=== PATIENT | female | born 1985 | race Caucasian/White ===

== ENCOUNTER → 2016-10-26 | Outpatient (CLI) | payer OTHER, MEDICAID ==
[~2016-10-26] MED LIST: BREA1EAC5 MC; CLC500CT PO; CTLP20T PO; DCS100C PO; HYDR-3720 PO; HYDR1TAB75 PO; IBP800T PO; LEVO175T2 PO; OMEP20TA2 PO; ONDN4T PO; PREN1TAB39 PO; PRM25T PO
--- NOTE | 2016-10-26 16:35 | Diagnostic Imaging Report ---
PROCEDURE: US Thyroid. TECHNIQUE: Multiple real-time grayscale images were obtained of the thyroid in various projections. INDICATION: Follow-up thyroid nodule. FINDINGS: The right thyroid lobe is 6.3 x 3.3 x 2.5 cm. The left lobe is 5.1 x 1.9 x 2.2 cm. Thyroid parenchyma is heterogeneous and slightly hypervascular. There is a hyperechoic nodule measuring 1 x 0.6 x 0.9 cm. This is not significantly changed from 03/16/2015 exam. IMPRESSION: 1. Essentially stable 1 cm hyperechoic nodule in the inferior aspect of the left thyroid lobe, likely benign. 2. Background stable heterogeneous gland could be sequela of thyroiditis or multinodular goiter without discrete nodules. Dictated by: Dictated on workstation # [id number]
== END ==
LOC: RAD 15:33
PROVIDERS: ATTEND Otolaryngology Otolaryngology/Facial Plastic Surgery
DX: E04.1 Nontoxic single thyroid nodule (principal)
CPT/HCPCS: 76536

== ENCOUNTER 2016-11-02 17:54 | Emergency (ER) | payer OTHER ==
[~2016-11-02] VITALS: Ht 172.7 cm; Wt 90.7 kg
--- OUTSIDE RECORDS SUMMARY | 2016-11-02 18:00 | XMS REPORT | Continuity of Care Document ---
Author Author [facility] Organization [facility] Address Unknown Phone Unavailable Allergies Active Description Code Type Severity Reaction Onset Reported/Identified Relationship to Patient Clinical Status Yes latex [id number] Drug Allergy Unknown N/A 07/22/2013 Medications Problems Date Dx Coded Attending Type Code Diagnosis Diagnosed By 10/08/2010 Ot 625.9 10/08/2010 Ot 646.83 12/21/2010 Ot 659.71 ABN DEL FET HT RT/RHYTHM,W OR W/O MENTIO 12/21/2010 Ot 669.81 COMP LAB/DELIV NEC-DELIV 12/21/2010 Ot V06.1 [id number], COMBINED [ 12/21/2010 Ot V27.0 DELIVER-SINGLE LIVEBORN 05/29/2012 Ot 276.51 DEHYDRATION 05/29/2012 Ot 787.03 VOMITING ALONE 05/29/2012 Ot 787.91 DIARRHEA 07/24/2013 AUDRA AGUDELO MD Ot 648.91 OTH CURR COND-DELIVERED 07/24/2013 AUDRA AGUDELO MD Ot V02.51 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 B STREPT 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/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 07/24/2013 AUDRA AGUDELO MD Ot V06.1 [id number], COMBINED [ 07/24/2013 AUDRA AGUDELO MD Ot V06.4 [id number] 07/24/2013 AUDRA AGUDELO MD Ot V27.0 DELIVER-SINGLE LIVEBORN 03/10/2014 Ot 241.1 03/10/2014 Ot 244.9 03/10/2014 Ot 462 03/10/2014 Ot 780.60 03/10/2014 Ot 599.70 03/10/2014 Ot 789.00 03/10/2014 AUDRA AGUDELO MD Ot 240.9 03/10/2014 [place], IJEOMA Coates Ot 241.1 03/28/2014 IJEOMA OSBORNE MD Ot 241.0 04/12/2014 Ot 241.1 04/12/2014 Ot 244.9 04/12/2014 Ot 462 04/12/2014 Ot 780.60 10/03/2014 Ot 241.1 10/03/2014 Ot 244.9 10/03/2014 Ot 462 10/03/2014 Ot 780.60 03/16/2015 Ot 241.1 03/16/2015 Ot 244.9 03/16/2015 Ot 462 03/16/2015 Ot 780.60 03/16/2015 Ot 599.70 03/16/2015 Ot 789.00 03/16/2015 [place], AUDRA Rand Ot 240.9 03/16/2015 [place], IJEOMA Coates Ot 241.1 03/16/2015 [place], IJEOMA Coates Ot 241.0 04/10/2015 Ot 241.1 04/10/2015 Ot 244.9 04/10/2015 Ot 462 04/10/2015 Ot 780.60 05/05/2015 Ot 241.1 05/05/2015 Ot 244.9 05/05/2015 Ot 462 05/05/2015 Ot 780.60 05/30/2016 Ot 241.1 NONTOX MULTINODUL GOITER 05/30/2016 Ot 244.9 HYPOTHYROIDISM NOS 05/30/2016 Ot 462 ACUTE PHARYNGITIS 05/30/2016 Ot 780.60 FEVER, UNSPECIFIED 05/30/2016 Ot 241.1 NONTOX MULTINODUL GOITER 05/30/2016 Ot 244.9 HYPOTHYROIDISM NOS 05/30/2016 Ot 462 ACUTE PHARYNGITIS 05/30/2016 Ot 780.60 FEVER, UNSPECIFIED 10/21/2016 Ot 462 ACUTE PHARYNGITIS 10/21/2016 Ot 780.60 FEVER, UNSPECIFIED 10/21/2016 Ot 599.70 HEMATURIA, UNSPECIFIED 10/21/2016 Ot 789.00 ABDOMINAL PAIN, UNSPECIFIED SITE 10/21/2016 [place], AUDRA Rand Ot 240.9 GOITER NOS 10/21/2016 [place], IJEOMA Coates Ot 241.1 NONTOX MULTINODUL GOITER 10/21/2016 [place], IJEOMA Coates Ot 241.0 NONTOX UNINODULAR GOITER 10/21/2016 [place], IJEOMA Coates Ot E04.9 NONTOXIC GOITER, UNSPECIFIED 10/21/2016 Ot 462 ACUTE PHARYNGITIS 10/21/2016 Ot 780.60 FEVER, UNSPECIFIED 10/21/2016 Ot 599.70 HEMATURIA, UNSPECIFIED 10/21/2016 Ot 789.00 ABDOMINAL PAIN, UNSPECIFIED SITE 10/21/2016 AUDRA AGUDELO MD Ot 240.9 GOITER NOS 10/21/2016 IJEOMA OSBORNE MD Ot 241.1 NONTOX MULTINODUL GOITER 10/21/2016 IJEOMA OSBORNE MD Ot 241.0 NONTOX UNINODULAR GOITER 10/21/2016 IJEOMA OSBORNE MD Ot E04.9 NONTOXIC GOITER, UNSPECIFIED Procedures Code Description Performed By Performed On 72.1 LOW FORCEPS W EPISIOTOMY 12/19/2010 73.6 EPISIOTOMY 2013 Results Encounters ACCT No. Visit Date/Time Discharge Status Pt. Type Provider Facility Loc./Unit Complaint [id number] 03/16/2015 13:49:00 2014 23:59:59 CLS Outpatient IJEOMA OSBORNE MD [facility] RAD GOITER [id number] 03/10/2014 08:36:00 2013 23:59:59 CLS Outpatient IJEOMA OSBORNE MD [facility] RAD THYROID NODULES [id number] 09/10/2013 15:44:00 2013 23:59:59 CLS Outpatient IJEOMA OSBORNE MD [facility] RAD GOITER [id number] 07/23/2013 07:15:00 2013 15:45:00 DIS Inpatient AUDRA AGUDELO MD [facility] WS EARLY LABOR [id number] 10/02/2012 10:37:00 2012 23:59:59 CLS Outpatient AUDRA AGUDELO MD [facility] RAD GOITER [id number] 10/26/2016 15:33:00 ACT Outpatient IJEOMA OSBORNE MD [facility] RAD LEFT INFERIOR THYROID NODULE [id number] 07/30/2012 14:41:00 Document Registration [id number] 05/29/2012 03:13:00 Document Registration [id number] 06/16/2011 09:51:00 Document Registration [id number] 01/20/2011 12:32:00 Document Registration [id number] 12/19/2010 06:41:00 Document Registration [id number] 10/08/2010 19:03:00 Document Registration
[2016-11-02 18:46] LABS: BILIRUBIN,URINE NEGATIVE (NEGATIVE); KETONES,URINE NEGATIVE (NEGATIVE); LEUKOCYTE ESTERASE ,URINE 1+ (NEGATIVE); NITRITE,URINE NEGATIVE (NEGATIVE); PH,URINE 6.5 (5-9); PROTEIN,URINE NEGATIVE (NEGATIVE); UROBILINOGEN,URINE NORMAL (NORMAL)
--- NOTE | 2016-11-02 18:50 | ED GU-Female ---
General Chief Complaint: -Female Stated Complaint: 12 W /VAGINAL BLEEDING History of Present Illness Time seen by provider: 18:35 Initial Comments Approximately 12 weeks gestation, at 1700 noted vaginal bleeding, she describes as a "gush" of blood. Bright red, spotting and blood with urination. Denies abdominal cramping, pain, nausea vomiting or diarrhea. Using a pad at the present time with the scant amount of pink discharge. Was recently started on Macrobid for UTI, and Flagyl for BV Dr. Mercedes. She is continuing to have some yellow/green vaginal d/c. Synthroid was adjusted last week. Timing/Duration: just prior to arrival Radiation: none Activities at Onset: none Prior Genitourinary Problems: none Sexual [place] History: less than 2 months ago Associated Symptoms: denies symptoms Allergies and Home Medications Allergies Coded Allergies: latex (Unverified Allergy, Unknown, 07/22/13) Home Medications Breast Pump 1 Pkt Each, 1 EA MC UD, #1 Prescribed by: AUDRA LONG on 07/24/13 0746 Calcium Carbonate 500 Mg Tab.chew, 1,000 MG PO DAILY PRN for INDIGESTION, ( Reported) Docusate Sodium 100 Mg Capsule, 300 MG PO DAILY, (Reported) Docusate Sodium 100 Mg Capsule, 1 CAP PO DAILY PRN for CONSTIPATION, #60 Prescribed by: AUDRA LONG on 07/24/13 0746 Hydrocodone Bit/Acetaminophen 1 Each Tablet, 1-2 TAB PO Q3H PRN for PAIN, #60 Prescribed by: AUDRA LONG on 07/24/13 0746 Ibuprofen 800 Mg Tablet, 1 TAB PO Q6H PRN for PAIN, #60 Prescribed by: AUDRA LONG on 07/24/13 0746 Levothyroxine Sodium 175 Mcg Tablet, 1 EACH PO DAILY, (Reported) Omeprazole 20 Mg Tablet.dr, 20 MG PO DAILY, (Reported) Ondansetron Hcl 4 Mg Tab, 4 MG PO Q6H PRN for NAUSEA/VOMITING, (Reported) Vits W-Ca,Fe,Fa(<1MG) 1 Each Tablet, 1 EACH PO DAILY, (Reported) Constitutional: no symptoms reported, see HPI Respiratory: no symptoms reported, see HPI Gastrointestinal: no symptoms reported, see HPI Genitourinary: see HPI, hematuria Musculoskeletal: no symptoms reported, see HPI All Other Systemes Reviewed Negative Unless Noted: Yes Past Oghgpuw-Lealcr-Ungmyx Hx Patient Social History Recent Foreign Travel: No Contact w/Someone Who Travel: No Surgeries HX Surgeries: No Respiratory Hx Respiratory Disorders: No Cardiovascular Hx Cardiac Disorders: No Neurological Hx Neurological Disorders: No Reproductive System Hx Reproductive Disorders: No Sexually Transmitted Disease: No HIV/AIDS: No Genitourinary Hx Genitourinary Disorders: No Gastrointestinal Hx Gastrointestinal Disorders: No Musculoskeletal Hx Musculoskeletal Disorders: No Endocrine Hx Endocrine Disorders: Yes Endocrine Disorders: Hypothyroidsim HEENT HX ENT Disorders: No Cancer Hx Cancer: No Psychosocial Hx Psychiatric Problems: No Integumentary HX Skin/Integumentary Disorder: No Blood Transfusions Hx Blood Disorders: No Adverse Reaction to a Blood Tr: No Reviewed Nursing Assessment Reviewed/Agree w Nursing PMH: Yes Family Medical History Family Medial History: Family history: Diabetes mellitus pgf Family history: Hypertension 09 BROTHER Family history: Thyroid disorder 03 FATHER Physical Exam Vital Signs Vital Sign - Last 12Hours 11/02/16 18:30 Temp 98.1 Pulse 92 Resp 18 B/P (MAP) 137/91 Pulse Ox 95 Capillary Refill : General Appearance: WD/WN, no apparent distress Neck: non-tender, full range of motion, normal inspection Cardiovascular: normal peripheral pulses, regular rate, rhythm, no JVD, no murmur Respiratory: chest non-tender, lungs clear, normal breath sounds Gastrointestinal: normal bowel sounds, non tender, soft, no organomegaly, distended, No guarding, No rebound, No tenderness Extremities: normal range of motion, non-tender, normal inspection Neurologic/Psychiatric: no motor/sensory deficits, alert, normal mood/affect, oriented x 3 Skin: normal color, warm/dry Lymphatic: no adenopathy Progress/Results/Core Measures Results/Orders Lab Results Laboratory Tests Test 11/02/16 18:40 11/02/16 18:41 11/02/16 19:12 Range/Units Urine Test POSITIVE NEGATIVE Urine Color YELLOW Urine Clarity CLEAR Urine pH 6.5 5-9 Urine Specific [place] 1.010 L 1.016-1.022 Urine Protein NEGATIVE NEGATIVE Urine Glucose (UA) NEGATIVE NEGATIVE Urine Ketones NEGATIVE NEGATIVE Urine Nitrite NEGATIVE NEGATIVE Urine Bilirubin NEGATIVE NEGATIVE Urine Urobilinogen NORMAL NORMAL MG/DL Urine Leukocyte Esterase 1+ H NEGATIVE Urine RBC (Auto) 4+ H NEGATIVE Urine RBC 2-5 H /HPF Urine WBC RARE /HPF Urine Squamous Epithelial Cells 2-5 /HPF Urine Crystals NONE /LPF Urine Bacteria NEGATIVE /HPF Urine Casts NONE /LPF Urine Mucus NEGATIVE /LPF Urine Culture Indicated NO White Blood Count 13.6 H 4.3-11.0 10^3/uL Red Blood Count 4.25 L 4.35-5.85 10^6/uL Hemoglobin 13.1 11.5-16.0 G/DL Hematocrit 38 35-52 % Mean Corpuscular Volume 90 80-99 FL Mean Corpuscular Hemoglobin 31 25-34 PG Mean Corpuscular Hemoglobin Concent 34 32-36 G/DL Red Cell Distribution Width 12.3 10.0-14.5 % Platelet Count 261 130-400 10^3/uL Mean Platelet Volume 8.7 7.4-10.4 FL Neutrophils (%) (Auto) 80 H 42-75 % Lymphocytes (%) (Auto) 11 L 12-44 % Monocytes (%) (Auto) 8 0-12 % Eosinophils (%) (Auto) 0 0-10 % Basophils (%) (Auto) 0 0-10 % Neutrophils # (Auto) 9.9 H 1.8-7.8 X 10^3 Lymphocytes # (Auto) 1.4 1.0-4.0 X 10^3 Monocytes # (Auto) 1.0 0.0-1.0 X 10^3 Eosinophils # (Auto) 0.0 0.0-0.3 10^3/uL Basophils # (Auto) 0.0 0.0-0.1 10^3/uL Prothrombin Time 11.9 L 12.2-14.7 SEC INR Comment 0.9 0.8-1.4 Activated Partial Thromboplast Time 24 24-35 SEC Sodium Level 136 135-145 MMOL/L Potassium Level 3.6 3.6-5.0 MMOL/L Chloride Level 107 98-107 MMOL/L Carbon Dioxide Level 19 L 21-32 MMOL/L Anion Gap 10 5-14 MMOL/L Blood Urea Nitrogen 9 7-18 MG/DL Creatinine 0.66 0.60-1.30 MG/DL Estimat Glomerular Filtration Rate > 60 BUN/Creatinine Ratio 14 Glucose Level 98 70-105 MG/DL Calcium Level 8.9 8.5-10.1 MG/DL Total Bilirubin 0.2 0.1-1.0 MG/DL Aspartate Amino Transf (AST/SGOT) 23 5-34 U/L Alanine Aminotransferase (ALT/SGPT) 23 0-55 U/L Alkaline Phosphatase 61 40-136 U/L Total Protein 7.0 6.4-8.2 GM/DL Albumin 3.9 3.2-4.5 GM/DL Thyroid Stimulating Hormone (TSH) 7.64 H 0.35-4.94 UIU/ML Human Chorionic Gonadotropin, Quant 180309 H <5 MIU/ML My Orders Orders - PIPO HOLLY Us Ob Single Fetus<14 [id number] (11/02/16 18:35) Cbc With Automated Diff (11/02/16 18:36) Comprehensive Metabolic Panel (11/02/16 18:36) Hcg,Qualitative Urine (11/02/16 18:36) Protime With Inr (11/02/16 18:36) Partial Thromboplastin Time (11/02/16 18:36) Ua Culture If Indicated (11/02/16 18:36) Thyroid Stimulating Hormone (11/02/16 18:44) Hcg,Quantitative (11/02/16 19:12) Vital Signs/I&O Vital Sign - Last 12Hours 11/02/16 11/02/16 18:30 19:55 Temp 98.1 Pulse 92 92 Resp 18 18 B/P (MAP) 137/91 Pulse Ox 95 95 Progress Note : Time: 18:35 Progress Note Initial evaluation completed, recommended labs UA, qualitative and quantitative hCG, CBC, CMP and TSH. Obstetric Ultrasound. 1899 ultrasound and assessment reviewed with Dr. Mercedes by phone, recommended evaluation with him at 0930 tomorrow in his office. 1914 discussed all lab results with the patient and findings of her ultrasound at this time would recommend rest, fluids and follow-up with Dr. Mercedes. Labs are all essentially normal with exception of elevated TSH 7.64. Quantitative hCG 118,609 Diagnostic Imaging Diagonstic Imaging: Ultrasound Comments NAME: JEANE MALIK MED REC#: [id number] PT STATUS: REG ER : 1985 PHYSICIAN: PIPO HOLLY ADMIT DATE: 11/02/16/ER Draft Date of Exam:11/02/16 US OB SINGLE FETUS<14 [id number] PROCEDURE: US OB single fetus <14 wks. TECHNIQUE: Multiple real-time grayscale images were obtained over the gravid uterus in various projections. INDICATION: Vaginal bleeding. COMPARISON: None. FINDINGS: Single intrauterine with a crown-rump length corresponding to a 12 week, 1 day gestation. heart rate is 165 bpm. There is a small possible subchorionic hemorrhage involving less than 20% of the gestational sac circumference. IMPRESSION: 1. Single live intrauterine with a crown-rump length corresponding to a 12 week, 1 day gestation. heart rate is 165 beats per minute. 2. Possible small ill-defined subchorionic hemorrhage involving less than 20% of the gestational sac circumference. Report was called to the ER physician at 7:33 p.m., by javad. Dictated on workstation # [id number] Dict: 11/02/161916 Trans: 11/02/161935 [id number] Interpreted by: PRINCE WAGNER MD Electronically signed by: Departure Impression Impression: Primary Impression: Vaginal bleeding before 22 weeks gestation Disposition: 01 HOME, SELF-CARE Condition: Stable Departure-Patient Inst. Decision time for Depature: 19:30 Referrals: KALEN TEJEDA MD (PCP/Family) Primary Care Physician Patient Instructions: Bleeding With (DC) Add. Discharge Instructions: Bedrest, increase water intake. Vaginal Rest, no intercourse. See Dr. Dc at 9:30 tomorrow. Return to emergency department for increased vaginal bleeding, fever greater than 100, fainting, abdominal pain, or new problems. All discharge instructions reviewed with patient and/or family. Voiced understanding. Copy Copies To 1: AUDRA MERCEDES MD, AMY ARNP Nov 02, 2016 18:50
[2016-11-02 18:56] LABS: WBC,URINE RARE /HPF
[2016-11-02 19:21] LABS: BASOPHILS % (AUTO) 0 % (0-10); EOSINOPHILS % (AUTO) 0 % (0-10); LYMPHOCYTES # (AUTO) 1.4 X 10^3 (1.0-4.0); LYMPHOCYTES % (AUTO) 11 % (12-44); MEAN CORPUSCULAR HGB CONC 34 G/DL (32-36); MEAN CORPUSCULAR VOLUME 90 FL (80-99); MEAN PLATELET VOLUME 8.7 FL (7.4-10.4); MONOCYTES % (AUTO) 8 % (0-12); NEUTROPHILS # (AUTO) 9.9 X 10^3 (1.8-7.8); NEUTROPHILS % (AUTO) 80 % (42-75); RED CELL DISTRIBUTION WIDTH 12.3 % (10.0-14.5)
[2016-11-02 19:23] LABS: MEAN CORPUSCULAR HEMOGLOBIN 31 PG (25-34); PLATELET COUNT 261 10^3/uL (130-400); RED BLOOD COUNT 4.25 10^6/uL (4.35-5.85); WHITE BLOOD COUNT 13.6 10^3/uL (4.3-11.0)
[2016-11-02 19:31] LABS: INR 0.9 (0.8-1.4); PROTHROMBIN TIME PATIENT 11.9 SEC (12.2-14.7)
--- NOTE | 2016-11-02 19:36 | Diagnostic Imaging Report ---
PROCEDURE: US OB single fetus <14 wks. TECHNIQUE: Multiple real-time grayscale images were obtained over the gravid uterus in various projections. INDICATION: Vaginal bleeding. COMPARISON: None. FINDINGS: Single intrauterine with a crown-rump length corresponding to a 12 week, 1 day gestation. heart rate is 165 bpm. There is a small possible subchorionic hemorrhage involving less than 20% of the gestational sac circumference. IMPRESSION: 1. Single live intrauterine with a crown-rump length corresponding to a 12 week, 1 day gestation. heart rate is 165 beats per minute. 2. Possible small ill-defined subchorionic hemorrhage involving less than 20% of the gestational sac circumference. Report was called to the ER physician at 7:33 p.m., by javad. Dictated by: Dictated on workstation # [id number]
[2016-11-02 19:50] LABS: ALANINE AMINOTRANSFERASE 23 U/L (0-55); ALBUMIN 3.9 GM/DL (3.2-4.5); ANION GAP 10 MMOL/L (5-14); ASPARTATE AMINO TRANSFERASE 23 U/L (5-34); BILIRUBIN,TOTAL 0.2 MG/DL (0.1-1.0); BLOOD UREA NITROGEN 9 MG/DL (7-18); BUN/CREATININE RATIO 14; CALCIUM 8.9 MG/DL (8.5-10.1); CARBON DIOXIDE 19 MMOL/L (21-32); CHLORIDE 107 MMOL/L (98-107); CREATININE SERUM 0.66 MG/DL (0.60-1.30); GFR ESTIMATED > 60; GLUCOSE 98 MG/DL (70-105); POTASSIUM 3.6 MMOL/L (3.6-5.0); SODIUM 136 MMOL/L (135-145)
[2016-11-02 19:55] VITALS: BP 137/91
[2016-11-02 20:52] LABS: THYROID STIMULATING HORMONE 7.64 UIU/ML (0.35-4.94)
== END 2016-11-02 19:55 | disposition home or self-care (01) ==
LOC: EDUNIT# 17:54 → ER 17:57
DX: O46.92 Antepartum hemorrhage, unspecified, second trimester (principal); O99.282 Endocrine, nutritional and metabolic diseases complicating pregnancy, second trimester; E03.9 Hypothyroidism, unspecified; Z3A.22 22 weeks gestation of pregnancy
CPT/HCPCS: 36415; 76801; 80053; 81000; 84443; 84702; 84703; 85025; 85610; 85730; 99282

== ENCOUNTER → 2017-01-02 | Outpatient (CLI) | payer OTHER, MEDICAID | LOC: CARD 11:34 | PROVIDERS: ATTEND Obstetrics & Gynecology | DX: R00.2 Palpitations (principal) | CPT/HCPCS: 93005 ==

== ENCOUNTER 2017-03-08 13:00 | Outpatient (RCR) | payer OTHER, MEDICAID ==
[2017-04-24] MEDS ORDERED: LEVO200T6 PO (06:00)
[2017-04-24] MEDS ORDERED: OMEP20CA12 PO (06:00)
[2017-04-24] MEDS ORDERED: CITA20TA12 PO (06:00)
[2017-04-24] MEDS ORDERED: OXYC-465 PO (10:08)
[2017-04-24] MEDS ORDERED: IBUP-1780 PO (10:08)
[2017-04-24] MEDS ORDERED: DOCU-143 PO (10:08)
== END 2017-06-06 | disposition home or self-care (01) ==
LOC: CARD 13:00
PROVIDERS: ATTEND Internal Medicine Interventional Cardiology
DX: R00.2 Palpitations (principal)
CPT/HCPCS: 93225; 93226

== ENCOUNTER → 2017-03-08 | Outpatient (CLI) | payer OTHER, MEDICAID | LOC: CARD 12:55 | PROVIDERS: ATTEND Internal Medicine Interventional Cardiology | DX: R00.2 Palpitations (principal) | CPT/HCPCS: 93306 ==

== ENCOUNTER 2017-04-24 05:17 | Inpatient (IN) | payer OTHER, MEDICAID ==
[~2017-04-24] VITALS: Ht 172.7 cm; Wt 90.7 kg
[2017-04-24] VITALS (35 sets, daily range): BP systolic 99–139; BP diastolic 53–96
[2017-04-24] MEDS ORDERED: LEVO200T6 PO (06:00)
[2017-04-24] MEDS ORDERED: OMEP20CA12 PO (06:00)
[2017-04-24] MEDS ORDERED: CITA20TA12 PO (06:00)
[2017-04-24] MEDS ORDERED: D5 LR IV SOLUTION 1,000 ML IV SCH (07:17)
[2017-04-24 07:26] LABS: BILIRUBIN,URINE NEGATIVE (NEGATIVE); CLARITY,URINE CLEAR; COLOR,URINE YELLOW; GLUCOSE, URINE (UA) NEGATIVE (NEGATIVE); KETONES,URINE NEGATIVE (NEGATIVE); LEUKOCYTE ESTERASE ,URINE NEGATIVE (NEGATIVE); NITRITE,URINE NEGATIVE (NEGATIVE); PH,URINE 8 (5-9); PROTEIN,URINE NEGATIVE (NEGATIVE); UROBILINOGEN,URINE NORMAL (NORMAL)
[2017-04-24] MEDS ORDERED: MINERAL OIL CONCENTRATE 99.9% 15 ML UDC TOP PRN (07:30)
[2017-04-24] MEDS ORDERED: CATHETER FLUSH 10 ML SYR IV PRN (07:30)
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
[2017-04-24 07:36] LABS: BACTERIA,URINE TRACE /HPF
[2017-04-24 07:37] LABS: AMORPHOUS SEDIMENT,UR MOD AMOR PHOSPHATE /LPF
[2017-04-24 07:53] LABS: BASOPHILS % (AUTO) 0 % (0-10); EOSINOPHILS % (AUTO) 0 % (0-10); HEMATOCRIT 33 % (35-52); HEMOGLOBIN 10.9 G/DL (11.5-16.0); LYMPHOCYTES # (AUTO) 2.1 X 10^3 (1.0-4.0); LYMPHOCYTES % (AUTO) 16 % (12-44); MEAN CORPUSCULAR HEMOGLOBIN 28 PG (25-34); MEAN CORPUSCULAR HGB CONC 33 G/DL (32-36); MEAN CORPUSCULAR VOLUME 84 FL (80-99); MEAN PLATELET VOLUME 9.9 FL (7.4-10.4); MONOCYTES % (AUTO) 7 % (0-12); NEUTROPHILS # (AUTO) 10.2 X 10^3 (1.8-7.8); NEUTROPHILS % (AUTO) 76 % (42-75); PLATELET COUNT 309 10^3/uL (130-400); RED BLOOD COUNT 3.97 10^6/uL (4.35-5.85); RED CELL DISTRIBUTION WIDTH 12.9 % (10.0-14.5); WHITE BLOOD COUNT 13.4 10^3/uL (4.3-11.0)
[2017-04-24] MEDS ORDERED: SUFENTA 0.6MCG/ML BUPIVA 0.125 100 ML ONE ×2 (08:07→10:48)
[2017-04-24] MEDS ORDERED: INFLUENZA TRIvalent 2017-2018 0.5 ML/45 MCG SYR IM ONE (08:15)
[2017-04-24 08:58] LABS: SMEAR SCAN COMMENT YES
[2017-04-24] MEDS ORDERED: OXYTOCIN/NORMAL SALINE 500 ML IV SCH ×3 (09:17→10:04)
--- NOTE | 2017-04-24 10:03 | History & Physical ---
History and Physical Date Seen by Provider: Apr 24, 2017 Time Seen by Provider: 10:00 this patient is a 31-year-old white female with a due date of May 15, 2014 putting her now at 37 weeks gestation. She presented in labor. She denied ruptured membranes or bleeding. She had a GBS culture after 35 weeks gestation that was negative. her has been complicated by an abnormal tetra test showing initially increased risk for an acute effect however her on recheck that returned as normal. Allergies are to latex and to Zithromax Medications are Synthroid Celexa vitamins and likely just Medical social and surgical and obstetric histories are per the antepartum record HEENT exam is normal Neck is supple no lymphadenopathy no thyromegaly Abdomen is gravid soft nontender nondistended Streaming show no clubbing cyanosis. There is no Homans sign. There is some pretibial pitting edema that is normal. Pelvic exam shows a cervix that is 2-2 and half centimeters dilated soft posterior the presenting part is high at -2 station. Amniotomy is performed with release of a small amount of clear fluid. monitor shows contractions every 3-4 minutes. There is a normal heart rate pattern. Laboratory Tests Test 04/24/17 05:35 04/24/17 07:40 Range/Units Urine Color YELLOW Urine Clarity CLEAR Urine pH 8 5-9 Urine Specific Bloomer 1.015 L 1.016-1.022 Urine Protein NEGATIVE NEGATIVE Urine Glucose (UA) NEGATIVE NEGATIVE Urine Ketones NEGATIVE NEGATIVE Urine Nitrite NEGATIVE NEGATIVE Urine Bilirubin NEGATIVE NEGATIVE Urine Urobilinogen NORMAL NORMAL MG/DL Urine Leukocyte Esterase NEGATIVE NEGATIVE Urine RBC (Auto) NEGATIVE NEGATIVE Urine RBC NONE /HPF Urine WBC NONE /HPF Urine Crystals PRESENT H /LPF Urine Amorphous Sediment MOD BAYRON PHOSPHATE H /LPF Urine Bacteria TRACE /HPF Urine Casts NONE /LPF Urine Mucus NEGATIVE /LPF Urine Culture Indicated NO White Blood Count 13.4 H 4.3-11.0 10^3/uL Red Blood Count 3.97 L 4.35-5.85 10^6/uL Hemoglobin 10.9 L 11.5-16.0 G/DL Hematocrit 33 L 35-52 % Mean Corpuscular Volume 84 80-99 FL Mean Corpuscular Hemoglobin 28 25-34 PG Mean Corpuscular Hemoglobin Concent 33 32-36 G/DL Red Cell Distribution Width 12.9 10.0-14.5 % Platelet Count 309 130-400 10^3/uL Mean Platelet Volume 9.9 7.4-10.4 FL Neutrophils (%) (Auto) 76 H 42-75 % Lymphocytes (%) (Auto) 16 12-44 % Monocytes (%) (Auto) 7 0-12 % Eosinophils (%) (Auto) 0 0-10 % Basophils (%) (Auto) 0 0-10 % Neutrophils # (Auto) 10.2 H 1.8-7.8 X 10^3 Lymphocytes # (Auto) 2.1 1.0-4.0 X 10^3 Monocytes # (Auto) 1.0 0.0-1.0 X 10^3 Eosinophils # (Auto) 0.0 0.0-0.3 10^3/uL Basophils # (Auto) 0.0 0.0-0.1 10^3/uL Smear Scan YES lab work is in the normal Assessment and plan term now 37 weeks' gestation in spontaneous labor. Plan is to allow epidural and augmented labor with amniotomy and Pitocin if needed expectation is for vaginal delivery Allergies and Home Medications Allergies Coded Allergies: amoxicillin (Verified Allergy, Unknown, 04/24/17) azithromycin (Verified Allergy, Unknown, 04/24/17) clavulanic acid (Verified Allergy, Unknown, 04/24/17) latex (Unverified Allergy, Unknown, 07/22/13) Home Medications Citalopram Hydrobromide 20 Mg Tablet, 20 MG PO DAILY, (Reported) Docusate Sodium 100 Mg Capsule, 300 MG PO DAILY, (Reported) Levothyroxine Sodium 200 Mcg Tablet, 200 MCG PO DAILY, (Reported) Omeprazole 20 Mg Capsule.dr, 20 MG PO BID, (Reported) Vits W-Ca,Fe,Fa(<1MG) 1 Each Tablet, 1 EACH PO DAILY, (Reported) Clinical Quality Measures DVT/VTE Risk/Contraindication: Risk Factor Score Per Nursin RFS Level Per Nursing on Admit: 1=Low/No VTE PPX AUDRA AGUDELO MD Apr 24, 2017 10:03 am
[2017-04-24] MEDS ORDERED: OXYC-465 PO (10:08)
[2017-04-24] MEDS ORDERED: IBUP-1780 PO (10:08)
[2017-04-24] MEDS ORDERED: DOCU-143 PO (10:08)
--- NOTE | 2017-04-24 10:10 | Discharge Instructions ---
Discharge Instructions Discharge Medications New, Converted or Re-Newed RX: RX on Chart Patient Instructions Patient Instructions: as directed Return to The Hospital For: as instructed Activity & Diet Discharge Diet: No Restrictions Orders-Post D/C & Referrals Follow Up Appt: Call to make follow up appt. for patient in 4 weeks. Activity Per routine post vaginal delivery instructions. Diet as tolerated Patient may shower or tub bathe as desired. AUDRA AGUDELO MD Apr 24, 2017 10:09 am
[2017-04-24] MEDS ORDERED: ONDANSETRON 4 MG/2 ML (SDV) Z0FRAN IVP PRN (10:15)
[2017-04-24] MEDS ORDERED: TETANUS,DIPTH,PERTUSS P/F (BOOSTRIX) 0.5 ML VIAL IM ONE (10:15)
[2017-04-24] MEDS ORDERED: BENZOCAINE/MENTHOL (DERMOPLAST) 56 ML CAN TP PRN (10:15)
[2017-04-24] MEDS ORDERED: oxyCODONE/APAP 10/325MG (PERCOCET 10) TABLET PO PRN (10:15)
[2017-04-24] MEDS ORDERED: LACTATED RINGERS 1,000 ML IV SCH (10:41)
[2017-04-24] MEDS ORDERED: EPIDURAL (SUFENTA 0.6MCG/ML BUPIVA 0.125%) 100 ML BAG EPI SCH (10:45)
[2017-04-24] MEDS ORDERED: diphenhydrAMINE 50 MG/ML INJ (BENADRYL) IV PRN (10:45)
[2017-04-24] MEDS ORDERED: ONDANSETRON 4 MG/2 ML (SDV) Z0FRAN IV PRN (10:45)
[2017-04-24] MEDS ORDERED: NALOXONE 0.4 MG/ML 1 ML (NARCAN) VIAL IV PRN ×2 (10:45)
[2017-04-24] MEDS ORDERED: METOCLOPRAMIDE INJ 10 MG/2 ML (REGLAN) IV PRN (10:45)
[2017-04-24] MEDS ORDERED: LIDOCAINE/EPI 2% 1:100,00 (XYLOCAINE) 20 ML VIAL INJ ONE (15:00)
[2017-04-24] MEDS ORDERED: LIDOCAINE/EPI 2% 1:200,00 (XYLOCAINE) 10 ML VIAL ONE (15:11)
[2017-04-24] MEDS: KETOROLAC 30 MG/ML VIAL IV SCH (17:16)
--- NOTE | 2017-04-24 21:49 | OPERATIVE REPORT ---
DATE OF SERVICE: 04/24/2017 DELIVERY NOTE The patient delivered by term spontaneous vaginal delivery, a viable male with Apgars that are pending. time was 1529, weight was 7 pounds 4 ounces. The infant was bulb suctioned on delivery of the head and again on completion of delivery. The umbilical cord was doubly clamped. When pulseless, the father cut the cord and the baby was passed to mom's abdomen. Cord bloods were obtained. The placenta delivered spontaneously Guevara. It was normal with a 3-vessel cord. It was sent to pathology for permanent section. The cervix, vagina, rectum and perineum were examined and found intact, except for midline episiotomy that was performed when the patient had crowned and then pushed to the pelvic floor. Mom wished to avoid any spontaneous laceration, requested an episiotomy which was performed under local augmenting the epidural that was already in place. The infant delivered promptly thereafter under the force of a contraction. The cervix, vagina, rectum, and perineum were examined and found intact, except for the episiotomy that was repaired with a single suture of 3-0 Vicryl Rapide. Sponge and needle counts were correct at the end of the procedure of the delivery and the repair. ESTIMATED BLOOD LOSS: Around 150 mL. The mom remained in the LDR for recovery. The baby remained with the mom. Job ID: [id number] DocumentID: [id number] Dictated Date: 04/24/2017 15:51:15 Machine I Cutter Date: 04/24/2017 18:23:32 Dictated By: AUDRA AGUDELO MD
[2017-04-25 00:45] VITALS: BP 109/72
[2017-04-25] MEDS: DOCUSATE SODIUM 100 MG (COLACE) CAP PO SCH ×2 (00:48→10:23)
[2017-04-25] MEDS: KETOROLAC 30 MG/ML VIAL IV SCH ×2 (00:49→06:55)
[2017-04-25 04:50] VITALS: BP 108/72
--- NOTE | 2017-04-25 07:56 | Progress Note-Standard ---
Standard Progress Note Progress Notes/Assess & Plan Date Seen by Provider: Apr 25, 2017 Time Seen by Provider: 07:55 Progress/Assessment & Plan this patient is without complaint. She is ambulating, voiding, tolerating by mouth, has good pain control. Patient denies chest pain, denies shortness breath, denies nausea vomiting, and denies headache. Vital Signs Date Time Temp Pulse Resp B/P (MAP) Pulse Ox O2 Delivery O2 Flow Rate FiO2 04/25/17 04:50 98.0 69 18 108/72 (84) 99 Room Air 04/25/17 00:45 98.0 80 18 109/72 (84) 99 Room Air 04/24/17 20:15 99.0 84 18 119/72 (88) 98 Room Air 04/24/17 17:15 89 108/63 (78) Room Air 04/24/17 16:45 86 103/55 (71) Room Air 04/24/17 16:30 92 115/55 (75) Room Air 04/24/17 16:15 90 108/62 (77) Room Air 04/24/17 16:00 99 137/74 (95) Room Air 04/24/17 15:45 98.0 96 99/53 (68) Room Air 04/24/17 15:30 123 18 113/70 (84) Room Air 04/24/17 15:15 103 116/68 (84) Room Air 04/24/17 15:00 91 104/55 (71) Room Air 04/24/17 14:45 98.2 95 112/66 (81) Room Air 04/24/17 14:30 93 127/73 (91) Room Air 04/24/17 14:15 91 114/58 (76) Room Air 04/24/17 14:00 83 117/58 (77) Room Air 04/24/17 13:45 82 18 108/59 (75) Room Air 04/24/17 13:30 84 135/77 (96) Room Air 04/24/17 13:15 79 99/58 (72) Room Air 04/24/17 13:00 77 115/71 (86) Room Air 04/24/17 12:45 90 113/73 (86) Room Air 04/24/17 12:30 85 16 116/72 (87) Room Air 1/1/18 12:15 81 123/69 (87) Room Air 04/24/17 12:00 76 114/63 (80) Room Air 04/24/17 11:45 80 113/69 (84) Room Air 04/24/17 11:15 84 108/59 (75) Room Air 04/24/17 10:35 95 16 114/61 (78) 100 Room Air 04/24/17 10:30 93 112/59 (76) 100 Room Air 04/24/17 10:23 91 115/60 (78) 100 Room Air 04/24/17 10:20 112 130/70 (90) 100 Room Air 04/24/17 10:16 96 117/68 (84) 100 Room Air 04/24/17 10:13 93 125/74 (91) 100 Room Air 04/24/17 10:10 121 133/78 (96) 100 Room Air 04/24/17 09:53 94 18 139/96 (110) Room Air 04/24/17 09:50 89 18 120/71 (87) Room Air 04/24/17 08:50 98.1 80 18 126/71 (89) Room Air I & O 04/25/17 07:00 Intake Total 1800 ml Output Total 900 ml Balance 900 ml vital signs are stable. Patient is afebrile. Fundus is firm below the umbilicus and nontender. Extremities show no clubbing cyanosis. There is no Homans sign. There is some pretibial pitting edema that is normal. Assessment and plan day number 1 status post term spontaneous vaginal delivery doing well. Plan is routine convalescence care and discharge home at patient's request Final Diagnosis term spontaneous vaginal delivery AUDRA AGUDELO MD Apr 25, 2017 7:56 am
[2017-04-25 10:00] VITALS: BP 122/84
[2017-04-25] MEDS ORDERED: TETANUS,DIPTH,PERTUSS P/F (BOOSTRIX) 0.5 ML VIAL IM ONE (10:25)
[2017-04-25] MEDS: IBUPROFEN 800 MG (MOTRIN) TAB PO SCH ×2 (12:24→18:01)
--- NOTE | 2017-04-25 12:25 | Anesthesia-Regional Post-Op ---
Regional Patient Condition Mental Status: Alert, Oriented x3 Circulation: Same as Pre-Op Headache: Absent Sensation: Full Recovery Motor Block: Absent Post Op Complications Complications None Follow Up Care/Instructions Patient Instructions None needed. Anesthesia/Patient Condition Patient is doing well, no complaints, stable vital signs, no apparent adverse anesthesia problems. TAMMY HERNANDEZ DO Apr 25, 2017 12:25
[2017-04-25 15:34] VITALS: BP 116/73
[2017-04-25 18:45] VITALS: BP 116/73
== END 2017-04-25 18:45 | disposition home or self-care (01) | DRG 775 ==
LOC: LDRP 05:17 → WSo 05:17 → LDRP 07:02
PROVIDERS: ADMIT Obstetrics & Gynecology; ATTEND Obstetrics & Gynecology
PROC: 10E0XZZ Delivery of Products of Conception, External Approach (ICD-10-PCS; principal; 2017-04-24)
PROC: 0W8NXZZ Division of Female Perineum, External Approach (ICD-10-PCS; 2017-04-24)
DX: O99.283 Endocrine, nutritional and metabolic diseases complicating pregnancy, third trimester (principal); E07.9 Disorder of thyroid, unspecified; O99.89 Other specified diseases and conditions complicating pregnancy, childbirth and the puerperium; K21.9 Gastro-esophageal reflux disease without esophagitis; Z3A.37 37 weeks gestation of pregnancy; Z37.0 Single live birth
CPT/HCPCS: 36415; 81000; 85025; 86850; 86900; 86901; 90715; 99212

== ENCOUNTER 2017-11-08 20:36 | Emergency (ER) | payer OTHER, MEDICAID ==
[~2017-11-08] VITALS: Ht 170.2 cm; Wt 79.4 kg
[~2017-11-08 20:36] MED LIST changes: +CITA20TA12 PO; +DOCU-143 PO; +IBUP-1780 PO; +LEVO200T6 PO; +OMEP20CA12 PO; +OXYC-465 PO
[2017-11-08] MEDS ORDERED: Vitamin D (20:59)
[2017-11-08] MEDS ORDERED: CEPH500C (20:59)
[2017-11-08] MEDS ORDERED: LEVO175T2 (20:59)
[2017-11-08] MEDS ORDERED: LEVO150T (20:59)
[2017-11-08] MEDS ORDERED: MULT-985 PO (21:01)
[2017-11-08 21:11] LABS: BILIRUBIN,URINE NEGATIVE (NEGATIVE); CLARITY,URINE CLEAR; COLOR,URINE YELLOW; GLUCOSE, URINE (UA) NEGATIVE (NEGATIVE); KETONES,URINE NEGATIVE (NEGATIVE); LEUKOCYTE ESTERASE ,URINE 2+ (NEGATIVE); NITRITE,URINE NEGATIVE (NEGATIVE); PH,URINE 7 (5-9); PROTEIN,URINE NEGATIVE (NEGATIVE); UROBILINOGEN,URINE NORMAL (NORMAL)
--- NOTE | 2017-11-08 21:32 | ED EENT ---
History of Present Illness General Chief Complaint: Oral/Throat Problems Stated Complaint: DIZZY, STEP THROAT Nursing Triage Note: Pt has been feeling ill since Monday and saw Dr Zimmer's IT ADMIN today for fevers and sore throat and dx strep. Rec'd Rocephin IM and to start Cephalexin tonight. Pt feels lightheaded and concern for not drinking and maintaining breast feeding. Pt's 6 mo old has strep also Source: patient, family (mom and ) Exam Limitations: no limitations History of Present Illness Date Seen by Provider: Nov 08, 2017 Time Seen by Provider: 21:13 Initial Comments The patient presents to the ER by private conveyance with her mother and and a chief complaint that she has been sick the past several days and her child was diagnosed with strep throat about a week ago and she went to her primary care doctor's office today and was diagnosed with strep throat. She was given a Rocephin shot and a cephalosporin to take outpatient which she started today. She says she is still feeling very ill and felt like she was going to pass out today. She does not think she's been drinking enough and her mother says she never drinks enough anyways. She is still nursing. She has been told she has otitis media with mucoid effusions but she's not using any Flonase or topical nasal sprays. She says she can drink. She's been using salt water gargles. She's been eating as well but less than normal. She has no other significant medical history. Her child to 6 months old. Allergies and Home Medications Allergies Coded Allergies: amoxicillin (Verified Allergy, Unknown, 04/24/17) azithromycin (Verified Allergy, Unknown, 04/24/17) clavulanic acid (Verified Allergy, Unknown, 04/24/17) latex (Unverified Allergy, Unknown, 07/22/13) Home Medications Citalopram Hydrobromide 20 Mg Tablet, 20 MG PO DAILY, (Reported) Multivitamin with Minerals 1 Each Tablet, 1 EACH PO DAILY, (Reported) Vits W-Ca,Fe,Fa(<1MG) 1 Each Tablet, 1 EACH PO DAILY, (Reported) Patient Home Medication List Home Medication List Reviewed: Yes Review of Systems Constitutional: chills, fever, malaise Eyes: Denies Inflammation, Denies Pain, Denies Photophobia Ears: Dizziness; Denies Tinnitus, Denies Bloody Discharge Nose: denies clots; congestion Mouth: denies clots, denies loose teeth Throat: swelling; denies neck stiffness, denies hoarse, denies aphonia, denies muffled; painful swallowing Respiratory: No cough, No short of breath Cardiovascular: No chest pain, No edema Gastrointestinal: No abdominal pain, No constipation, No diarrhea Past Bvvbdvz-Izlfwa-Rkwkuh Hx Patient Social History Alcohol Use: Denies Use Recreational Drug Use: No Smoking Status: Never a Smoker Recent Foreign Travel: No Contact w/Someone Who Travel: No Recent Infectious Disease Expo: No Recent Hopitalizations: No Seasonal Allergies Seasonal Allergies: No Past Medical History Surgeries: No Respiratory: No Cardiac: No Neurological: No : No Reproductive Disorders: No Sexually Transmitted Disease: No HIV/AIDS: No Genitourinary: No Gastrointestinal: No Musculoskeletal: No Endocrine: Yes Hypothyroidsim HEENT: No Cancer: No Psychosocial: No Integumentary: No Blood Disorders: No Adverse Reaction/Blood Tranf: No Family Medical History Family history: Diabetes mellitus pgf Family history: Hypertension 09 BROTHER Family history: Thyroid disorder 03 FATHER Physical Exam Vital Signs Vital Signs - First Documented 11/08/17 20:42 Temp 100.0 Pulse 111 Resp 18 B/P (MAP) 131/87 (102) Pulse Ox 98 O2 Delivery Room Air Height, Weight, BMI Height: 5'7.00" Weight: 175lbs. 0.0oz. 79.057522mo; 30.4 BMI Method:Stated General Appearance: WD/WN, no apparent distress Eyes: bilateral eye normal inspection, bilateral eye PERRL, bilateral eye EOMI Ears: bilateral ear auricle normal, bilateral ear canal normal, bilateral ear other (bilateral TMs with mucoid effusion without erythema, injection or loss of TM landmarks) Nose: normal inspection; No discharge Mouth/Throat: pharynx normal (oral mucosa is mildly dry), tonsillar exudate, tonsillar swelling Neck: non-tender, supple, normal inspection Cardiovascular: normal peripheral pulses, regular rate, rhythm Respiratory: no respiratory distress, no accessory muscle use Neurologic/Psychiatric: alert, oriented x 3 Skin: normal color, warm/dry Progress/Results/Core Measures Results/Orders Lab Results Laboratory Tests Test 11/08/17 21:00 Range/Units Urine Color YELLOW Urine Clarity CLEAR Urine pH 7 5-9 Urine Specific [place] 1.005 L 1.016-1.022 Urine Protein NEGATIVE NEGATIVE Urine Glucose (UA) NEGATIVE NEGATIVE Urine Ketones NEGATIVE NEGATIVE Urine Nitrite NEGATIVE NEGATIVE Urine Bilirubin NEGATIVE NEGATIVE Urine Urobilinogen NORMAL NORMAL MG/DL Urine Leukocyte Esterase 2+ H NEGATIVE Urine RBC (Auto) 2+ H NEGATIVE Urine RBC 2-5 H /HPF Urine WBC 2-5 /HPF Urine Squamous Epithelial Cells 5-10 /HPF Urine Crystals NONE /LPF Urine Bacteria NONE /HPF Urine Casts NONE /LPF Urine Mucus NEGATIVE /LPF Urine Culture Indicated NO My Orders Orders - JACK CORTES Ua Culture If Indicated (11/08/17 21:06) Vital Signs/I&O 11/08/17 20:42 Temp 100.0 Pulse 111 Resp 18 B/P (MAP) 131/87 (102) Pulse Ox 98 O2 Delivery Room Air Blood Pressure Mean: 102 Progress Progress Note : Time: 21:37 Progress Note Suspect that her dizziness and near syncopal episodes she is describing are related to being dehydrated and sick. We have offered her laboratory examination and IV fluids versus oral rehydration there be outpatient at home and she has elected the latter. We have discussed the natural course of a strep throat infection and encourage her to drink some Gatorade and double and triple up on her fluid intake. We have also discussed appropriate doses of Tylenol Motrin for her fever and chills. She is on appropriate antibiotics on day 1 and she should expect improvement by day 3 or 4 of antibiotic use. Departure Impression Primary Impression: Streptococcal sore throat Additional Impressions: Dehydration fever Acute otitis media with effusion of both ears Disposition: 01 HOME, SELF-CARE Condition: Stable Departure-Patient Inst. Decision time for Depature: 21:38 Referrals: KALEN ZIMMER MD (PCP/Family) Primary Care Physician Patient Instructions: Strep Throat (DC) Add. Discharge Instructions: Drink lots of fluids especially half-strength sports drinks. Use Tylenol 1000 mg every 8 hours in addition to ibuprofen 800 mg every 8 hours. For your ear effusion you can take one puff of Flonase up each nostril twice a day for the next 1-2 weeks. Expect results after the first 3-4 days. You should see results from the antibiotics by day 3 or 4. For sore throat you can gargle salt water every hour for 90 seconds at least. You can also use a teaspoon of honey. Get plenty of rest and drink fluids until you feel like you are constantly having to go to the bathroom. If you cannot keep up on your fluid intake or you begin to have worsening symptoms or your symptoms are not improving by day 4 of antibiotic use then you may return to your doctor or the ER. All discharge instructions reviewed with patient and/or family. Voiced understanding. Work/School Note: Work Release Form Date Seen in the Emergency Department: Nov 08, 2017 Return to Work: Nov 11, 2017 Restrictions: No Restrictions JACK CORTES Nov 08, 2017 21:31
[2017-11-08 21:45] VITALS: BP 131/87
== END 2017-11-08 21:45 | disposition home or self-care (01) ==
LOC: EDUNIT# 20:36 → ER 20:37
DX: J02.0 Streptococcal pharyngitis (principal); H65.193 Other acute nonsuppurative otitis media, bilateral; E86.0 Dehydration; E03.9 Hypothyroidism, unspecified; Z88.0 Allergy status to penicillin; Z88.8 Allergy status to other drugs, medicaments and biological substances; Z91.040 Latex allergy status
CPT/HCPCS: 81000; 99282

== ENCOUNTER → 2018-03-26 | Outpatient (CLI) | payer OTHER, MEDICAID ==
[~2018-03-26] MED LIST changes: +CEPH500C; +LEVO150T; +LEVO175T2; +MULT-985 PO; +Vitamin D
--- NOTE | 2018-03-26 12:56 | Diagnostic Imaging Report ---
PROCEDURE: US Thyroid. TECHNIQUE: Multiple real-time grayscale images were obtained of the thyroid in various projections. INDICATION: Thyroid nodule. Comparison is made with prior study from 10/26/2016. Lobe of thyroid measures 5.4 x 3.0 x 1.9 cm and the left lobe measures 5.5 x 2.2 x 1.7 cm. Both lobes again show marked parenchymal heterogeneity. No discrete nodule is seen on today's study. Specifically, no hyperechoic nodule in the lower pole left lobe is seen to account for the nodule noted on 10/26/2016. IMPRESSION: Enlarged, heterogeneous thyroid. No discrete thyroid mass is identified on today's study. Dictated by: Dictated on workstation # [id number]
== END ==
LOC: RAD 11:24
PROVIDERS: ATTEND Otolaryngology Otolaryngology/Facial Plastic Surgery
DX: E04.1 Nontoxic single thyroid nodule (principal)
CPT/HCPCS: 76536

== ENCOUNTER 2019-10-24 14:15 | Day surgery (SDC) | payer OTHER, MEDICAID ==
[~2019-10-24] VITALS: Ht 170.2 cm; Wt 79.3 kg
[2019-10-24] VITALS (10 sets, daily range): BP systolic 100–123; BP diastolic 59–77
[~2019-10-24 14:15] MED LIST changes: -OMEP20CA12 PO; +OMEP20CA18 PO; -OXYC-465 PO; +OXYC-556 PO
[2019-10-24] MEDS ORDERED: LACTATED RINGERS 1,000 ML IV PRN (14:40)
[2019-10-24] MEDS ORDERED: fentaNYL INJECTION 100 MCG/2 ML AMP ONE (14:41)
[2019-10-24] MEDS ORDERED: MIDAZOLAM 2 MG/2 ML (VERSED) VIAL ONE (14:42)
[2019-10-24] MEDS ORDERED: proPOfol 200 MG/20 ML (DIPRIVAN) VIAL IV ONE (14:43)
[2019-10-24] MEDS ORDERED: LIDOCAINE PF 2% 5 ML (XYLOCAINE) VIAL ONE (14:43)
[2019-10-24] MEDS ORDERED: ONDANSETRON 4 MG/2 ML (SDV) Z0FRAN ONE (14:43)
[2019-10-24] MEDS ORDERED: SUCCINYLCHOLINE INJ 100 MG/5 ML SYR/VIAL ONE (14:44)
[2019-10-24] MEDS ORDERED: SEVOFLURANE (ULTANE) 15 ML INHAL SOLN ONE ×3 (14:45)
[2019-10-24] MEDS ORDERED: FAMOTIDINE 20MG/2ML IV (PEPCID) IV ONE (14:45)
[2019-10-24] MEDS ORDERED: MIDAZOLAM 2 MG/2 ML (VERSED) VIAL IV ONE (14:45)
[2019-10-24] MEDS ORDERED: ROCURONIUM 10 MG/ML 5 ML SYRINGE IV ONE (15:04)
[2019-10-24] MEDS ORDERED: WATER (STERILE) FOR INJECTION 10 ML ONE (15:16)
[2019-10-24] MEDS ORDERED: ceFAZolin INJECTION 1,000 MG ONE (15:16)
[2019-10-24 15:28] LABS: BASOPHILS % (AUTO) 0 % (0-10); EOSINOPHILS % (AUTO) 0 % (0-10); HEMATOCRIT 38 % (35-52); HEMOGLOBIN 13.1 G/DL (11.5-16.0); LYMPHOCYTES # (AUTO) 1.3 X 10^3 (1.0-4.0); LYMPHOCYTES % (AUTO) 10 % (12-44); MEAN CORPUSCULAR HEMOGLOBIN 32 PG (25-34); MEAN CORPUSCULAR HGB CONC 34 G/DL (32-36); MEAN CORPUSCULAR VOLUME 92 FL (80-99); MEAN PLATELET VOLUME 9.9 FL (7.4-10.4); MONOCYTES # (AUTO) 0.4 X 10^3 (0.0-1.0); MONOCYTES % (AUTO) 4 % (0-12); NEUTROPHILS # (AUTO) 10.8 X 10^3 (1.8-7.8); NEUTROPHILS % (AUTO) 86 % (42-75); PLATELET COUNT 318 10^3/uL (130-400); WHITE BLOOD COUNT 12.5 10^3/uL (4.3-11.0)
[2019-10-24] MEDS ORDERED: ceFAZolin INJECTION 1,000 MG in WATER (STERILE) FOR INJECTION 10 ML IV ONE (15:30)
--- NOTE | 2019-10-24 16:14 | Progress Note-Pre Operative ---
Pre-Operative Progress Note H&P Reviewed The H&P was reviewed, patient examined and no changes noted. Date Seen by Provider: Oct 24, 2019 Time Seen by Provider: 16:13 Date H&P Reviewed: Oct 24, 2019 Time H&P Reviewed: 16:13 Pre-Operative Diagnosis: 19 weeks with IUFD AUDRA AGUDELO MD Oct 24, 2019 16:14
--- NOTE | 2019-10-24 16:15 | Progress Note-Post Operative ---
Post-Operative Progess Note Surgeon (s)/Oxide Furnace Tender (s) Surgeon UADRA AGUDELO MD Oxide Furnace Tender: none Pre-Operative Diagnosis 19 weeks with IUFD Post-Operative Diagnosis same Procedure & Operative Findings Date of Procedure 10/24/19 Procedure Performed/Findings D&C Anesthesia Type GETA Estimated Blood Loss Estimated blood loss (mL): 2100 CC Specimens/Packing Specimens Removed uterine contents / POC AUDRA AGUDELO MD Oct 24, 2019 16:15
--- NOTE | 2019-10-24 16:16 | Discharge Inst-Surgical ---
Discharge Inst-Surgical Depart Medication/Instructions New, Converted or Re-Newed RX: RX on Chart Consults/Follow Up Patient Instructions: as directed Orders & Referrals Follow Up Appt: Call to make follow up appt. for patient in 2 weeks. Activity: Rest for 24 hours, than as tolerated. Wound Care: May remove Band-Aid tomorrow. Replace as desired. Keep incisions clean and dry. Wash daily with soap and water. Please call in RX to patient pharmacy. Diet: As tolerated-Clear Liquids only if nauseated. shower or tub bathe as desired. No driving for 24 hours, no alcoholic beverages for 24 hours, and nothing per vagina (no tampons, douching, or intercourse) for 2 weeks. Patient to return to the clinic as soon as possible for: Temperature greater darshan n 101F, Severe Pain, Foul discharge from incision or vagina, Excessive Bleeding (more than a period). Activity Activity as Tolerated: No Diet Discharge Diet: No Restrictions AUDRA AGUDELO MD Oct 24, 2019 16:16
[2019-10-24] MEDS ORDERED: KETOROLAC 30 MG/ML VIAL ONE (17:05)
[2019-10-24] MEDS ORDERED: PROMETHAZINE INJ 25 MG/ML (PHENERGAN) AMP IVP ONE (17:30)
[2019-10-24] MEDS ORDERED: ONDANSETRON 4 MG/2 ML (SDV) Z0FRAN IVP PRN (17:30)
[2019-10-24] MEDS ORDERED: morphine INJ 10 MG/ML 1ML (SYR OR VIAL) IVP ONE (17:30)
[2019-10-24] MEDS ORDERED: MEPERIDINE (DEMEROL) INJ 50 MG/ML IVP ONE (17:30)
[2019-10-24] MEDS ORDERED: HYDROmorphone 2 MG/ML VIAL (DILAUDID) IV ONE (17:30)
--- NOTE | 2019-10-24 18:15 | NUR ---
Pt to room 306 via bed accompanied by PACU nurse. Report rec'd bedside from Ayla Peacock RN. IV fluids to pump. Assessment completed. Calf SCD's on per pt request. VS taken. Pt and S.O. oriented to room and call light. Fresh ice water provided. Condolences and stuffed animal memory sloan provided to pt. Pt denies further needs or concerns at this time.
--- NOTE | 2019-10-24 18:18 | Anesthesia-General Post-Op ---
General Patient Condition Mental Status/LOC: Same as Preop Cardiovascular: Satisfactory Nausea/Vomiting: Absent Respiratory: Satisfactory Pain: Controlled Complications: Absent Post Op Complications Complications None Follow Up Care/Instructions Patient Instructions None needed. Anesthesia/Patient Condition Patient Condition Patient is doing well, no complaints, stable vital signs, no apparent adverse anesthesia problems. No complications reported per nursing. MARLENE RIVAS CRNA Oct 24, 2019 18:18
--- NOTE | 2019-10-24 19:25 | NUR ---
Pt. up to BR w/standby assist, voided, pericare done, lt rubra lochia on pad, no clots noted. Pt. back to bed on own, tolerated well. Offered & will give sandwich tray, Sprite, crackers & chloraseptic lozenge as pt. c/o "scratchy" throat. Pt. very appreciative.
[2019-10-24] MEDS ORDERED: CHLORASEPTIC LOZENGE MM PRN (19:45)
--- NOTE | 2019-10-24 20:20 | NUR ---
Pt. ate & drank, no n/v or pain, voices she would like to go home but would like to check w/dr. FF U/1, lt rubra lochia on pad, reassurance given that bleeding is not heavy. Called Dr. Mercedes, update given, no new orders rc'd, will proceed w/ D/C. POC reviewed w/pt, pt. verbalized understanding & very appreciative. Up to BR & passed approx 4 cm stringy clot, no heavy bleeding, again reassurance given. Pt. getting dressed to go home.
--- NOTE | 2019-10-24 20:40 | NUR ---
D/C instructions given & explained, pt. verbalized understanding & signed, copy of D/C instructions given to pt. Pt. left [facility] via W/C per this RN & , to home via private vehicle after properly secured in vehicle.
--- NOTE | 2019-10-25 02:24 | OPERATIVE REPORT ---
DATE OF SERVICE: 10/24/2019 PREOPERATIVE DIAGNOSIS: 19-week demise. POSTOPERATIVE DIAGNOSIS: 19-week demise. OPERATIVE PROCEDURE: D and C. OPERATIVE DESCRIPTION: With the patient in supine position under satisfactory general anesthesia, she was repositioned in the dorsal lithotomy position in the [facility] stirrups and prepped and draped in the usual fashion for vaginal surgery. Urinary bladder was emptied with a straight catheter. A weighted speculum placed in posterior fornix of vagina. The cervix was sounded and grasped with 2 single tooth tenacula, 1 placed at 10 o'clock and 1 placed at 3 o'clock position. The uterus was then sounded to 14.5 cm with uterine sound. The cervix was then serially dilated with Hegar dilators to a #18 Hegar. Ring forceps were then introduced and the parts were extracted. During the extraction process, placenta tissue was extracted as well. There was some bleeding. A #16 curved suction curette was introduced and uterine cavity curettaged with removal of fairly significant amount of blood and clot, amniotic fluid and some related tissue and debris. The suction curette was removed. The uterine cavity was explored with ring forceps and additional parts were extracted. The thorax, both lower extremities and both upper extremities were recovered and accounted for and then the cephalic arch were recovered as well. The fetus was fairly well deteriorated at unknown duration of the demise, but the tissue was dark larsen and was undergoing a significant amount of autolysis. With the parts accounted for, ultrasound was obtained showing an empty uterus with a little bit of blood and clot or retained fluid. With the ultrasound completed, the uterine cavity was curettaged a final time with a #11 curved suction curette removing additional blood clot and debris. There was no identifiable placenta or parts at this point. The patient had fairly brisk bleeding. At this point, she had lost approximately 2100 mL of blood, but once the bulk of the placenta and the parts were removed, the bleeding resolved. She had minimal bleeding now at the cervical os. There was some bleeding from the puncture sites from the tenaculum. These were controlled with [id number] sutures of 2-0 Vicryl. With the hemostasis at the puncture sites and with minimal bleeding now from the cervical os, the procedure was terminated. The uterus had been approximately 18- to 20-week size prior to the procedure that was contracted down to about 12-week size and seemed to be contracted nicely and firmly. Again, there was minimal bleeding at the cervical os. Sponge and needle counts were correct. Blood loss was around 2100 to 2200 mL. The patient was now uneventfully awakened from her general anesthesia and transferred to recovery room in stable condition with plans for discharge home PAR. Job ID: [id number] DocumentID: [id number] Dictated Date: 10/24/2019 17:12:59 [employer] Date: 10/25/2019 01:32:18 Dictated By: AUDRA AGUDELO MD MTDD
--- NOTE | 2019-10-25 08:55 | Diagnostic Imaging Report ---
INDICATION: demise. A limited ultrasound was performed in the OR. There is some heterogeneity and thickening of the endometrium. No gestational sac or parts are identified. No abnormal vascularity to the endometrium is seen. IMPRESSION: Thickened, heterogeneous endometrium. This may represent blood products. No definite vascularized retained products of conception is seen. Dictated by: Dictated on workstation # [id number]
--- NOTE | 2019-10-28 13:16 | History & Physical ---
History and Physical Date Seen by Provider: Oct 24, 2019 Time Seen by Provider: 16:00 H&P were faxed to Surgery department on the DOS. That is with the patients chart and was reviewed prior to OR. 19 Week IUFD Allergies and Home Medications Allergies Coded Allergies: amoxicillin (Verified Allergy, Unknown, 04/24/17) azithromycin (Verified Allergy, Unknown, 04/24/17) clavulanic acid (Verified Allergy, Unknown, 04/24/17) latex (Unverified Allergy, Unknown, 07/22/13) Home Medications Citalopram Hydrobromide 20 Mg Tablet, 20 MG PO DAILY, (Reported) Multivitamin with Minerals 1 Each Tablet, 1 EACH PO DAILY, (Reported) Vits W-Ca,Fe,Fa(<1MG) 1 Each Tablet, 1 EACH PO DAILY, (Reported) Patient Home Medication List Home Medication List Reviewed: Yes AUDRA AGUDELO MD Oct 28, 2019 13:16
== END 2019-10-24 20:40 | disposition home or self-care (01) ==
LOC: SDC 14:15
PROVIDERS: ATTEND Obstetrics & Gynecology
DX: O02.1 Missed abortion (principal); K21.9 Gastro-esophageal reflux disease without esophagitis; Z3A.19 19 weeks gestation of pregnancy; Z88.1 Allergy status to other antibiotic agents; Z91.040 Latex allergy status; Z79.890 Hormone replacement therapy; Z20.828 Contact with and (suspected) exposure to other viral communicable diseases; Z11.2 Encounter for screening for other bacterial diseases
CPT/HCPCS: 59821; 76815; 85025; 86850; 86900; 86901; 86920; 87081; 88305; U0002; 36415; 87635

== ENCOUNTER 2020-01-07 22:59 | Emergency (ER) | payer OTHER, MEDICAID ==
[~2020-01-07] VITALS: Ht 172 cm; Wt 87.0 kg
--- NOTE | 2020-01-07 23:15 | NUR ---
Pt to room where she reports she is approx 5 wks and started having low back pain yesterday and then had sudden onset spotting approx 1 hours prior to arrival. Pt is tearful and reports that she had a demise at 19wks in October. Pt LMP was in Nov and had a positive test on Dec.27.
[2020-01-07 23:30] LABS: BASOPHILS % (AUTO) 0 % (0-10); EOSINOPHILS # (AUTO) 0.1 10^3/uL (0.0-0.3); EOSINOPHILS % (AUTO) 1 % (0-10); HEMATOCRIT 42 % (35-52); HEMOGLOBIN 14.1 G/DL (11.5-16.0); LYMPHOCYTES # (AUTO) 3.6 X 10^3 (1.0-4.0); LYMPHOCYTES % (AUTO) 25 % (12-44); MEAN CORPUSCULAR HEMOGLOBIN 29 PG (25-34); MEAN CORPUSCULAR HGB CONC 33 G/DL (32-36); MEAN CORPUSCULAR VOLUME 87 FL (80-99); MEAN PLATELET VOLUME 10.5 FL (7.4-10.4); MONOCYTES # (AUTO) 1.3 X 10^3 (0.0-1.0); MONOCYTES % (AUTO) 9 % (0-12); NEUTROPHILS # (AUTO) 9.5 X 10^3 (1.8-7.8); NEUTROPHILS % (AUTO) 66 % (42-75); PLATELET COUNT 256 10^3/uL (130-400); WHITE BLOOD COUNT 14.5 10^3/uL (4.3-11.0)
[2020-01-07 23:36] LABS: BILIRUBIN,URINE NEGATIVE (NEGATIVE); CLARITY,URINE CLOUDY; COLOR,URINE YELLOW; GLUCOSE, URINE (UA) NEGATIVE (NEGATIVE); KETONES,URINE NEGATIVE (NEGATIVE); LEUKOCYTE ESTERASE ,URINE TRACE (NEGATIVE); NITRITE,URINE NEGATIVE (NEGATIVE); PH,URINE 7.5 (5-9); PROTEIN,URINE NEGATIVE (NEGATIVE)
[2020-01-07 23:59] LABS: BACTERIA,URINE TRACE /HPF; CALCIUM OXALATE CRYSTALS,UR RARE /LPF; RBC,URINE TNTC /HPF
[2020-01-08 00:28] LABS: ANISOCYTOSIS SLIGHT; ATYPICAL LYMPHOCYTES 7 %; EOSINOPHILS % (MANUAL) 1 %; HYPOCHROMASIA MODERATE; LYMPHOCYTES % (MANUAL) 18 %; MONOCYTES % (MANUAL) 8 %; NEUTROPHILS % (MANUAL) 66 %
--- NOTE | 2020-01-08 00:28 | NUR ---
Dr. Monaco to room with restults and plan of care.
[2020-01-08] MEDS ORDERED: CEPH-507 PO (00:38)
--- NOTE | 2020-01-08 00:39 | ED GU-Female ---
General Chief Complaint: OB < 20 WEEKS Stated Complaint: VAGINAL BLEEDING;5 WEEKS 5 DAYS Nursing Triage Note: Pt here with vaginal spotting; onset 1 hour ago. Pt is approx 5 wks . Nursing Sepsis Screen: No Definite Risk Source: patient, old records Exam Limitations: no limitations History of Present Illness Date Seen by Provider: Jan 08, 2020 Time Seen by Provider: 23:05 Initial Comments This 34-year-old 5 para 3 presents to the emergency room at approximately 5-6 weeks gestational age with concerns about vaginal bleeding that started tonight. She also has had lower back ache starting yesterday and continuing on today. Her last menstrual period was November 26 and she had a positive test December 25. She had a loss in October requiring D&C. She reports her back pain is not as intense today but bleeding started this evening and that concerned her. She is quite emotionally distraught due to her recent loss. She is rather tearful. Temperature is noted to be 100.6. Patient states she has been known to develop a low grade fever when very emotionally distressed due to flushing of the skin. She denies any acute illness such as fever, cough, vomiting, diarrhea, etc. Blood type is A-pos. 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 Allergies and Home Medications Allergies Coded Allergies: azithromycin (Verified Allergy, Unknown, 04/24/17) clavulanic acid (Verified Allergy, Unknown, 04/24/17) latex (Unverified Allergy, Unknown, 07/22/13) Home Medications Cephalexin 500 Mg Capsule, 500 MG PO TID Prescribed by: BAILEE SHAIKH on 01/08/20 0038 Citalopram Hydrobromide 20 Mg Tablet, 20 MG PO DAILY, (Reported) Multivitamin with Minerals 1 Each Tablet, 1 EACH PO DAILY, (Reported) Vits W-Ca,Fe,Fa(<1MG) 1 Each Tablet, 1 EACH PO DAILY, (Reported) Patient Home Medication List Home Medication List Reviewed: Yes Review of Systems Review of Systems Constitutional: no symptoms reported EENTM: no symptoms reported Respiratory: no symptoms reported Cardiovascular: no symptoms reported Gastrointestinal: no symptoms reported Genitourinary: see HPI : Yes Musculoskeletal: no symptoms reported Skin: no symptoms reported Psychiatric/Neurological: No Symptoms Reported Endocrine: No Symptoms Reported Past Pvlieyx-Drlhhx-Sgcfre Hx Past Med/Social Hx: Reviewed Nursing Past Med/Soc Hx Patient Social History Alcohol Use: Denies Use Recreational Drug Use: No Smoking Status: Never a Smoker Recent Foreign Travel: No Contact w/Someone Who Travel: No Recent Infectious Disease Expo: No Recent Hopitalizations: No Seasonal Allergies Seasonal Allergies: No Past Medical History Surgeries: Yes (D&C) Respiratory: No Cardiac: No Neurological: No Hx : 5 Hx Para: 3 Reproductive Disorders: Yes Female Reproductive Disorders: Polycystic Ovarian Dis Sexually Transmitted Disease: No HIV/AIDS: No Genitourinary: No Gastrointestinal: No Musculoskeletal: No Endocrine: Yes Hypothyroidsim HEENT: No Cancer: No Psychosocial: No Integumentary: No Blood Disorders: No Adverse Reaction/Blood Tranf: No Family Medical History Family history: Diabetes mellitus pgf Family history: Hypertension 09 BROTHER Family history: Thyroid disorder 03 FATHER Physical Exam Vital Signs Vital Signs - First Documented 01/07/20 23:16 Temp 38.0 Pulse 116 Resp 20 B/P (MAP) 148/86 (106) Pulse Ox 99 O2 Delivery Room Air Capillary Refill : Less Than 3 Seconds Height, Weight, BMI Height: 5'7.00" Weight: 175lbs. 0.0oz. 79.356959do; 29.00 BMI Method:Stated General Appearance: WD/WN, mild distress (emotionally distraught) HEENT: PERRL/EOMI, normal ENT inspection, pharynx normal Neck: normal inspection Cardiovascular: regular rate, rhythm, no edema, no gallop Respiratory: lungs clear, normal breath sounds, no respiratory distress, no acc essory muscle use Gastrointestinal: normal bowel sounds, soft, tenderness (very subtle in the right pelvis) Extremities: non-tender, normal inspection, no pedal edema Neurologic/Psychiatric: business operations manager II-XII nml as tested, no motor/sensory deficits, alert, normal mood/affect, oriented x 3 Skin: normal color, warm/dry Progress/Results/Core Measures Suspected Sepsis Recent Fever Within 48 Hours: No Infection Criteria Present: None New/Unexplained Altered Menta: No Sepsis Screen: No Definite Risk SIRS Temperature: Pulse: 116 Respiratory Rate: 20 Laboratory Tests 01/07/20 23:19: White Blood Count 14.5H Blood Pressure 148 /86 Mean: 106 Laboratory Tests 01/07/20 23:19: Platelet Count 256 Results/Orders Lab Results Laboratory Tests Test 01/07/20 23:10 01/07/20 23:19 Range/Units Urine Color YELLOW Urine Clarity CLOUDY Urine pH 7.5 5-9 Urine Specific [place] 1.010 L 1.016-1.022 Urine Protein NEGATIVE NEGATIVE Urine Glucose (UA) NEGATIVE NEGATIVE Urine Ketones NEGATIVE NEGATIVE Urine Nitrite NEGATIVE NEGATIVE Urine Bilirubin NEGATIVE NEGATIVE Urine Urobilinogen 0.2 < = 1.0 MG/DL Urine Leukocyte Esterase TRACE H NEGATIVE Urine RBC (Auto) 3+ H NEGATIVE Urine RBC TNTC H /HPF Urine WBC 10-25 H /HPF Urine Squamous Epithelial Cells 2-5 /HPF Urine Crystals NONE /LPF Urine Calcium Oxalate Crystals RARE H /LPF Urine Bacteria TRACE /HPF Urine Casts NONE /LPF Urine Mucus NEGATIVE /LPF Urine Culture Indicated NO White Blood Count 14.5 H 4.3-11.0 10^3/uL Red Blood Count 4.90 4.35-5.85 10^6/uL Hemoglobin 14.1 11.5-16.0 G/DL Hematocrit 42 35-52 % Mean Corpuscular Volume 87 80-99 FL Mean Corpuscular Hemoglobin 29 25-34 PG Mean Corpuscular Hemoglobin Concent 33 32-36 G/DL Red Cell Distribution Width 13.5 10.0-14.5 % Platelet Count 256 130-400 10^3/uL Mean Platelet Volume 10.5 H 7.4-10.4 FL Neutrophils (%) (Auto) 66 42-75 % Lymphocytes (%) (Auto) 25 12-44 % Monocytes (%) (Auto) 9 0-12 % Eosinophils (%) (Auto) 1 0-10 % Basophils (%) (Auto) 0 0-10 % Neutrophils # (Auto) 9.5 H 1.8-7.8 X 10^3 Lymphocytes # (Auto) 3.6 1.0-4.0 X 10^3 Monocytes # (Auto) 1.3 H 0.0-1.0 X 10^3 Eosinophils # (Auto) 0.1 0.0-0.3 10^3/uL Basophils # (Auto) 0.0 0.0-0.1 10^3/uL Neutrophils % (Manual) 66 % Lymphocytes % (Manual) 18 % Monocytes % (Manual) 8 % Eosinophils % (Manual) 1 % Atypical Lymphocytes 7 % Hypochromasia MODERATE Anisocytosis SLIGHT C-Reactive Protein High Sensitivity 0.66 H 0.00-0.50 MG/DL Human Chorionic Gonadotropin, Quant 58903 H <5 MIU/ML My Orders Orders - BAILEE MOODY MD Cbc With Automated Diff (01/07/20 23:05) Hcg,Quantitative (01/07/20 23:05) Ua Culture If Indicated (01/07/20 23:05) Manual Differential (01/07/20 23:19) Hs C Reactive Protein (01/08/20 00:21) Cephalexin Capsule (Keflex Capsule) (01/08/20 00:45) Medications Given in ED Current Medications Medications Dose Ordered Sig/Jona Route Start Time Stop Time Status Last Admin Dose Admin Cephalexin HCl 500 mg ONCE ONCE PO 01/08/20 00:45 01/08/20 00:46 DC 01/08/20 00:38 500 MG Vital Signs/I&O 01/07/20 01/08/20 23:16 00:47 Temp 38.0 Pulse 116 87 Resp 20 18 B/P (MAP) 148/86 (106) 120/55 Pulse Ox 99 97 O2 Delivery Room Air Room Air Capillary Refill : Less Than 3 Seconds Blood Pressure Mean: 106 Progress Note : Progress Note Evaluation due to did not seem suspicious for ectopic . Patient has had no bleeding overtly. See discharge instructions. Departure Impression Primary Impression: Vaginal bleeding during Additional Impression: Urinary tract infection Qualified Codes: N39.0 - Urinary tract infection, site not specified; R31.9 - Hematuria, unspecified Disposition: 01 HOME, SELF-CARE Condition: Improved Departure-Patient Inst. Decision time for Depature: 00:36 Referrals: KALEN TEJEDA MD (PCP/Family) Primary Care Physician Patient Instructions: Urinary Tract Infection, Adult (DC), Bleeding With (DC) Add. Discharge Instructions: Please contact Dr. Mercedes's office first thing in the morning. He may wish to perform further assessment such as ultrasound. Observe pelvic rest meaning nothing vaginally including intercourse until cleared by Dr. Mercedes. Drink plenty of clear liquids and complete your antibiotic as prescribed. Call or return to care if you have worsening symptoms or have other questions or concerns. You may safely use Tylenol (acetaminophen) for pain. All discharge instructions reviewed with patient and/or family. Voiced understanding. Scripts Cephalexin (Keflex) 500 Mg Capsule 500 MG PO TID, #20 CAP Prov: BAILEE MOODY MD 01/08/20 Copy Copies To 1: AUDRA MERCEDES MD, JOSHUA T MD Jan 08, 2020 00:39
[2020-01-08] MEDS ORDERED: CEPHALEXIN 250 MG (KEFLEX) CAP PO ONE (00:45)
[2020-01-08 00:47] VITALS: BP 120/55
== END 2020-01-08 00:49 | disposition home or self-care (01) ==
LOC: EDUNIT# 22:59 → ER 23:00
DX: O20.9 Hemorrhage in early pregnancy, unspecified (principal); O23.41 Unspecified infection of urinary tract in pregnancy, first trimester; Z3A.01 Less than 8 weeks gestation of pregnancy; Z88.1 Allergy status to other antibiotic agents; Z91.040 Latex allergy status; Z82.49 Family history of ischemic heart disease and other diseases of the circulatory system; Z83.3 Family history of diabetes mellitus
CPT/HCPCS: 36415; 81000; 84702; 85007; 85027; 86141; 99283

== ENCOUNTER 2020-02-19 09:10 | Day surgery (SDC) | payer OTHER, MEDICAID ==
[2020-02-19] VITALS (11 sets, daily range): BP systolic 108–134; BP diastolic 65–91
[~2020-02-19] VITALS: Ht 175.5 cm; Wt 86.5 kg
[~2020-02-19 09:10] MED LIST changes: +CEPH-507 PO
--- NOTE | 2020-02-19 09:13 | Progress Note-Pre Operative ---
Pre-Operative Progress Note H&P Reviewed The H&P was reviewed, patient examined and no changes noted. Patient has elected to proceed with D&C. Surgical risks, complications, recovery and follow up have been fully discussed. Date Seen by Provider: Feb 19, 2020 Time Seen by Provider: 09:12 Date H&P Reviewed: Feb 19, 2020 Time H&P Reviewed: 09:13 Pre-Operative Diagnosis: Missed AB at 10 weeks gestation AUDRA AGUDELO MD Feb 19, 2020 09:13
[2020-02-19] MEDS ORDERED: D5 LR IV SOLUTION 1,000 ML IV SCH (09:14)
--- NOTE | 2020-02-19 09:14 | Progress Note-Post Operative ---
Post-Operative Progess Note Surgeon (s)/Float Remover (s) Surgeon AUDRA AGUDELO MD Float Remover: Stephanie Concepcion CC3 Pre-Operative Diagnosis Missed AB at 10 weeks gestation Post-Operative Diagnosis same Procedure & Operative Findings Date of Procedure 02/19/20 Procedure Performed/Findings D&C Anesthesia Type spinal Estimated Blood Loss Estimated blood loss (mL): 100cc Specimens/Packing Specimens Removed uterine contents / POC AUDRA AGUDELO MD Feb 19, 2020 09:14
[2020-02-19] MEDS ORDERED: MEPERIDINE (DEMEROL) INJ 100 MG/ML IM ONE (09:15)
[2020-02-19] MEDS ORDERED: ONDANSETRON 4 MG/2 ML (SDV) Z0FRAN IVP PRN ×2 (09:15→10:45)
[2020-02-19] MEDS ORDERED: KETOROLAC 30 MG/ML VIAL IVP ONE (09:15)
[2020-02-19] MEDS ORDERED: PROMETHAZINE INJ 25 MG/ML (PHENERGAN) AMP IM ONE (09:15)
[2020-02-19] MEDS ORDERED: LEVOFLOXACIN 250 MG/50 ML IVPB 50 ML IV ONE (09:15)
[2020-02-19] MEDS ORDERED: IBUP-1780 PO (09:15)
[2020-02-19] MEDS ORDERED: HYDROcodone/APAP 10 MG/325 MG (LORTAB) TAB PO PRN (09:15)
--- NOTE | 2020-02-19 09:17 | Discharge Inst-Surgical ---
Discharge Inst-Surgical Depart Medication/Instructions New, Converted or Re-Newed RX: Call to Patients Pharmacy Consults/Follow Up Patient Instructions: as directed Orders & Referrals Follow Up Appt: Call to make follow up appt. for patient in 2 weeks. Activity: as tolerated. Please call in RX to patient pharmacy. Diet: As tolerated may shower or tub bathe as desired. No driving for 24 hours, no alcoholic beverages for 24 hours, and nothing per vagina (no tampons, douching, or intercourse) for 2 weeks. Patient to return to the clinic as soon as possible for: Temperature greater than 101F, Severe Pain, Foul discharge from incision or vagina, Excessive Bleeding (more than a period). Activity Activity as Tolerated: No Diet Discharge Diet: No Restrictions AUDRA AGUDELO MD Feb 19, 2020 09:17
[2020-02-19] MEDS ORDERED: ONDANSETRON 4 MG/2 ML (SDV) Z0FRAN ONE (09:34)
[2020-02-19] MEDS: LACTATED RINGERS 1,000 ML IV PRN ×2 (09:40→10:30)
[2020-02-19 10:00] LABS: BASOPHILS % (AUTO) 0 % (0-10); EOSINOPHILS % (AUTO) 0 % (0-10); HEMATOCRIT 41 % (35-52); HEMOGLOBIN 13.5 g/dL (11.5-16.0); LYMPHOCYTES # (AUTO) 1.8 10^3/uL (1.0-4.0); LYMPHOCYTES % (AUTO) 20 % (12-44); MEAN CORPUSCULAR HEMOGLOBIN 29 pg (25-34); MEAN CORPUSCULAR HGB CONC 33 g/dL (32-36); MEAN CORPUSCULAR VOLUME 88 fL (80-99); MEAN PLATELET VOLUME 9.9 fL (9.0-12.2); MONOCYTES # (AUTO) 0.7 10^3/uL (0.0-1.0); MONOCYTES % (AUTO) 8 % (0-12); NEUTROPHILS # (AUTO) 6.3 10^3/uL (1.8-7.8); NEUTROPHILS % (AUTO) 71 % (42-75); PLATELET COUNT 264 10^3/uL (130-400); WHITE BLOOD COUNT 8.8 10^3/uL (4.3-11.0)
[2020-02-19] MEDS ORDERED: MIDAZOLAM 2 MG/2 ML (VERSED) VIAL ONE (10:13)
[2020-02-19] MEDS ORDERED: proPOfol 200 MG/20 ML (DIPRIVAN) VIAL IV ONE (10:13)
[2020-02-19] MEDS ORDERED: KETOROLAC 30 MG/ML VIAL ONE (10:34)
[2020-02-19] MEDS ORDERED: PROMETHAZINE INJ 25 MG/ML (PHENERGAN) AMP IVP ONE (10:45)
[2020-02-19] MEDS ORDERED: METOCLOPRAMIDE INJ 10 MG/2 ML (REGLAN) IV PRN (10:45)
[2020-02-19] MEDS ORDERED: diphenhydrAMINE 50 MG/ML INJ (BENADRYL) IV PRN (10:45)
[2020-02-19] MEDS ORDERED: morphine INJ 10 MG/ML 1ML (SYR OR VIAL) IVP ONE (10:45)
[2020-02-19] MEDS ORDERED: MEPERIDINE (DEMEROL) INJ 50 MG/ML IVP ONE (10:45)
[2020-02-19] MEDS ORDERED: ONDANSETRON 4 MG/2 ML (SDV) Z0FRAN IV PRN (10:45)
[2020-02-19] MEDS ORDERED: NALOXONE 0.4 MG/ML 1 ML (NARCAN) VIAL IV PRN ×2 (10:45)
--- NOTE | 2020-02-19 12:12 | NUR ---
PATIENT REQUESTS TO NOT HAVE PRESCRIPTION PHONED IN AND STATES HAS MOTRIN AT HOME.
--- NOTE | 2020-02-19 13:32 | Anesthesia-Regional Post-Op ---
Regional Patient Condition Mental Status: Alert, Oriented x3 Circulation: Same as Pre-Op Headache: Absent Sensation: Full Recovery Motor Block: Absent Post Op Complications Complications None Follow Up Care/Instructions Patient Instructions None needed. Anesthesia/Patient Condition Patient is doing well, no complaints, stable vital signs, no apparent adverse anesthesia problems. No complications reported per nursing. MARLENE RIVAS CRNA Feb 19, 2020 13:32
--- NOTE | 2020-02-19 13:52 | OPERATIVE REPORT ---
DATE OF SERVICE: 02/19/2020 PREOPERATIVE DIAGNOSIS: Missed AB at 10 weeks' gestation. POSTOPERATIVE DIAGNOSES: Missed AB at 10 weeks' gestation. OPERATIVE PROCEDURE: D and C for first trimester missed AB. OPERATIVE DESCRIPTION: With the patient in the supine position under satisfactory spinal analgesia, she was prepped and draped in the usual fashion for vaginal surgery. Urinary bladder was drained with a straight catheter. A weighted speculum placed in posterior fornix of vagina, cervix exposed and grasped anteriorly with single tooth tenaculum. Uterus was sounded to 14 cm with uterine sound. The cervix was then serially dilated with Kenny dilators to a #20 Kenny and then the final step in dilation was a #19 Drake. A #10 curved suction curette was then introduced and the uterine cavity suction curettaged in all 4 quadrants with removal of a moderate amount of trophoblastic and decidual appearing tissue as well as blood clot and amniotic fluid and debris. The endometrial cavity was then sharply curettaged in all 4 quadrants to good uterine cry. The curved suction curette was reintroduced, and all blood clot and debris evacuated from the uterus. The suction curette was removed. There was minimal bleeding from the cervical os. The tenaculum was removed. There was some bleeding from one of the puncture sites. This was touched with silver nitrate to affect hemostasis. With hemostasis assured, the procedure complete, the procedure was terminated. Sponge and needle counts were correct on completion of the procedure, estimated blood loss was around 100 mL. The patient tolerated the procedure well and was transferred to recovery room in stable condition. Plans were for discharge home PAR. Job ID: [id number] DocumentID: [id number] Dictated Date: 02/19/2020 11:55:06 Electric Arc Furnace Operator Date: 02/19/2020 13:51:54 Dictated By: UADRA AGUDELO MD
--- NOTE | 2020-02-19 15:02 | NUR ---
PATIENT ABLE TO MOVE ALL EXTREMITIES AND STATES SLIGHT NUMBNESS IN BUTTOCKS. PATIENT IN RR ATTEMPTING TO URINATE. SMALL AMOUNT OF BLEEDING FROM VAGINA. PATIENT ABLE TO URINATE AND THIS RN TO CONTINUE WITH DISCHARGE.
== END 2020-02-19 15:15 | disposition home or self-care (01) ==
LOC: SDC 09:10
PROVIDERS: ATTEND Obstetrics & Gynecology
DX: O02.1 Missed abortion (principal); Z20.828 Contact with and (suspected) exposure to other viral communicable diseases; Z88.1 Allergy status to other antibiotic agents; Z91.040 Latex allergy status; Z88.8 Allergy status to other drugs, medicaments and biological substances; Z80.9 Family history of malignant neoplasm, unspecified; Z83.3 Family history of diabetes mellitus; Z82.3 Family history of stroke
CPT/HCPCS: 59820; 85025; 87081; U0002; 36415; 87635

== ENCOUNTER → 2020-03-27 | Outpatient (CLI) | payer MEDICAID, OTHER ==
--- NOTE | 2020-03-27 11:00 | Diagnostic Imaging Report ---
PROCEDURE: US Gallbladder. TECHNIQUE: Multiple real-time grayscale images were obtained over the right upper quadrant in various projections. INDICATION: Right upper quadrant. COMPARISON: There are no prior studies available for comparison. FINDINGS: There is no evidence for cholelithiasis or acute cholecystitis and the common bile duct is not dilated. The liver is homogeneous and does not appear to be enlarged. There is no focal mass involving the liver and the biliary tree is not abnormally distended. Spectral and color-flow imaging of the portal vein shows that the vein is patent. The pancreas, the right kidney, and the inferior vena cava are unremarkable. The aorta was not well visualized due to overlying bowel gas. IMPRESSION: 1. There is no acute abnormality of the right upper quadrant. 2. If clinical concern regarding an underlying abnormality of the gallbladder persists and further imaging is desired, then a nuclear medicine hepatobiliary scan would be recommended. Dictated by: Dictated on workstation # [id number]
== END ==
LOC: RAD 09:00
PROVIDERS: ATTEND Nurse Practitioner Family
DX: R10.11 Right upper quadrant pain (principal); Z20.828 Contact with and (suspected) exposure to other viral communicable diseases
CPT/HCPCS: 76705

== ENCOUNTER → 2020-03-27 | Outpatient (CLI) | payer MEDICAID, OTHER ==
--- NOTE | 2020-03-27 12:03 | Diagnostic Imaging Report ---
PROCEDURE: US Thyroid. TECHNIQUE: Multiple real-time grayscale images were obtained of the thyroid in various projections. INDICATION: Thyroid nodules, goiter. The prior thyroid ultrasound exam of 03/26/2018 noted the thyroid gland to be enlarged and that each lobe had a heterogeneous appearance. There was no discrete nodule identified within either lobe of the thyroid, however. On this study, the overall appearance of the thyroid gland does not appear to have changed significantly since the prior exam. Both lobes are enlarged, particularly the right lobe. The right lobe measures 5.7 x 3.2 x 1.7 cm while the left lobe is estimated to be 4.8 x 2.1 x 1.7 cm. On the prior exam, the right lobe measures 5.4 x 3.0 x 1.9 cm while the left lobe is estimated to be 5.5 x 2.2 x 1.7 cm (normal gland size 4-5 x 2 x 2 cm or less). Each lobe still has a heterogeneous appearance. There does appear to be a roughly 1 cm well-circumscribed hyperechoic nodule along the anterior aspect of the inferior pole of the left lobe of the thyroid. In retrospect, this was also present on the prior exam of 10/26/2016 and does not appear to have changed significantly. IMPRESSION: The thyroid gland is enlarged and the heterogeneous texture of the gland does suggest goiter formation. The small hyperechoic nodule along the anterior aspect of the inferior pole of the left lobe seen previously is unchanged. No new abnormality has developed otherwise. Dictated by: Dictated on workstation # [id number]
== END ==
LOC: RAD 09:45
PROVIDERS: ATTEND Otolaryngology Otolaryngology/Facial Plastic Surgery
DX: E04.2 Nontoxic multinodular goiter (principal)
CPT/HCPCS: 76536

== ENCOUNTER → 2020-07-31 | Outpatient (CLI) | payer OTHER, MEDICAID ==
--- NOTE | 2020-07-31 10:23 | Diagnostic Imaging Report ---
INDICATION: Right lower quadrant pain. TECHNIQUE: 2 supine view of the abdomen 10:16 AM CORRELATION STUDY: None FINDINGS: Moderate stool within the colon. A few gas-filled loops of small bowel are present. However, no findings to suggest underlying obstruction. There is a nodular density in the right abdomen as well as left upper quadrant that may very well reflect ingested tablets. Spina bifida occulta defect at the S1 level. Minimal leftward curvature lumbar spine. IMPRESSION: 1. Nonobstructive appearing bowel gas pattern with mild/moderate stool retention. Dictated by: Dictated on workstation # [id number]
== END ==
LOC: RAD 09:54
PROVIDERS: ATTEND Nurse Practitioner Family
DX: K59.00 Constipation, unspecified (principal); R10.11 Right upper quadrant pain; R10.12 Left upper quadrant pain
CPT/HCPCS: 74018

== ENCOUNTER → 2020-08-25 | Outpatient (CLI) | payer OTHER ==
[~2020-08-25] MED LIST changes: +CATHETER FLUSH 10 ML SYR IV PRN; +HOLD METFORMIN - RECEIVED CONTRAST 20 ML VIAL IV SCH; +IOHEXOL 350 MG/ML 100 ML (OMNIPAQUE 350) VIAL IV ONE; +NS 100 ML (IVPB) BAG IV ONE
--- NOTE | 2020-08-25 12:04 | Diagnostic Imaging Report ---
PROCEDURE: CT abdomen and pelvis without contrast. TECHNIQUE: Multiple contiguous axial images were obtained through the abdomen and pelvis without the use of intravenous contrast. Auto Exposure Controls were utilized during the CT exam to meet ALARA standards for radiation dose reduction. INDICATION: Right lower quadrant pain. The previous CT abdomen/pelvis exam of 07/30/2012 failed to show any sign of an acute abnormality. On this study there is no evidence for nephrolithiasis or urolithiasis and the kidneys do not appear to be obstructed. There is no pelvic mass or free fluid collection identified either. The uterus is prominent and similar to the prior exam. The urinary bladder is only partially filled and consequently not well evaluated. There is no obvious bladder abnormality evident. The appendix was visualized and is not abnormally thickened. There is no evidence for acute appendicitis. The liver, spleen, pancreas, gallbladder, aorta and inferior vena cava show no sign of an acute abnormality. The stomach is partially filled with fluid. There is no obvious gastric abnormality evident. The lung bases are clear. The bone windows show no sign of an acute fracture or of an acute lesion. There is mild deformity of the right 12th rib. Most likely this a sequela of prior trauma. IMPRESSION: 1. There is no evidence for an acute abnormality of the abdomen and pelvis. In particular there is no sign of obstruction of either collecting system or of acute appendicitis. Dictated by: Dictated on workstation # [id number]
== END ==
LOC: RAD 09:41
PROVIDERS: ATTEND Nurse Practitioner Family
DX: R10.12 Left upper quadrant pain (principal)
CPT/HCPCS: 74176

== ENCOUNTER → 2021-05-11 | Outpatient (CLI) | payer OTHER ==
[~2021-05-11] MED LIST changes: -CATHETER FLUSH 10 ML SYR IV PRN; -HOLD METFORMIN - RECEIVED CONTRAST 20 ML VIAL IV SCH; -IOHEXOL 350 MG/ML 100 ML (OMNIPAQUE 350) VIAL IV ONE; +MULT-1054 PO; -MULT-985 PO; -NS 100 ML (IVPB) BAG IV ONE
--- NOTE | 2021-05-11 13:23 | Diagnostic Imaging Report ---
INDICATION: Routine care. TECHNIQUE: Multiple Real-time grayscale images were obtained over the gravid uterus. COMPARISON: None. FINDINGS: There is a single live intrauterine fetus. There is transverse presentation with the head to the maternal right. The cervical length is 6 cm. The amniotic fluid index is normal. The placenta is anterior with a low-lying complete previa present. heart rate of 149 BPM. anatomical survey was normal with the structures visualized including kidneys, bladder, stomach, ventricles, four-chamber heart, three-vessel cord, spine, and cord insertion. The facial structures were not well visualized. The maternal adnexa is normal. Biometrical measurements are as follows: Biparietal 5.11 cm, age 21 weeks 4 days. Head circumference 18.98 cm, age 21 weeks 2 days. Abdominal circumference 17.31 cm, age 22 weeks 2 days. Femur length 3.47 cm, age 21 weeks 0 days. Sonographic estimate age: 21 weeks 4 days. Sonographic estimated date of delivery: 09/17/2021. Estimated Weight: 437 gm (+/- 64 gm). LMP percentile: 96%. heart rate: 149 beats per minute. number: 1 of 1. IMPRESSION: Single live intrauterine fetus with current biometric measurements average for 21 weeks 4 days with a sonographic EDC of 09/17/2021. No abnormality is demonstrated although the face was not well seen. Dictated by: Dictated on workstation # [id number]
== END ==
LOC: RAD 10:00
PROVIDERS: ATTEND Nurse Practitioner Women's Health
DX: Z34.82 Encounter for supervision of other normal pregnancy, second trimester (principal); Z3A.21 21 weeks gestation of pregnancy
CPT/HCPCS: 76805

== ENCOUNTER → 2021-08-24 | Outpatient (CLI) | payer OTHER, MEDICAID | LOC: LABNPT 15:21 | PROVIDERS: ATTEND Obstetrics & Gynecology | DX: Z34.83 Encounter for supervision of other normal pregnancy, third trimester (principal) | CPT/HCPCS: 87081 ==

== ENCOUNTER 2021-09-04 01:00 | Inpatient (IN) | payer OTHER, MEDICAID ==
[~2021-09-04] VITALS: Ht 172.7 cm; Wt 95.1 kg
[2021-09-04] VITALS (28 sets, daily range): BP systolic 108–169; BP diastolic 52–98
[2021-09-04 01:31] LABS: BILIRUBIN,URINE NEGATIVE (NEGATIVE); CLARITY,URINE CLEAR; COLOR,URINE YELLOW; GLUCOSE, URINE (UA) NEGATIVE (NEGATIVE); KETONES,URINE NEGATIVE (NEGATIVE); LEUKOCYTE ESTERASE ,URINE NEGATIVE (NEGATIVE); NITRITE,URINE NEGATIVE (NEGATIVE); PH,URINE 7.5 (5-9); PROTEIN,URINE NEGATIVE (NEGATIVE)
[2021-09-04 01:53] LABS: BACTERIA,URINE NEGATIVE /HPF; SQUAMOUS EPITHELIAL CELL,UR 0-2 /HPF; WBC,URINE 0-2 /HPF
[2021-09-04] MEDS ORDERED: D5 LR IV SOLUTION 1,000 ML IV ONE (02:28)
[2021-09-04] MEDS: CALCIUM CARBONATE 500 MG (TUMS) TAB.CHEW PO PRN ×2 (02:30→16:09)
[2021-09-04] MEDS ORDERED: D5 LR IV SOLUTION 1,000 ML IV SCH ×3 (03:00→03:45)
[2021-09-04 03:08] LABS: BASOPHILS % (AUTO) 0 % (0-10); EOSINOPHILS % (AUTO) 0 % (0-10); HEMATOCRIT 39 % (35-52); HEMOGLOBIN 13.4 g/dL (11.5-16.0); LYMPHOCYTES # (AUTO) 2.2 10^3/uL (1.0-4.0); LYMPHOCYTES % (AUTO) 21 % (12-44); MEAN CORPUSCULAR HEMOGLOBIN 31 pg (25-34); MEAN CORPUSCULAR HGB CONC 34 g/dL (32-36); MEAN CORPUSCULAR VOLUME 91 fL (80-99); MEAN PLATELET VOLUME 9.9 fL (9.0-12.2); MONOCYTES # (AUTO) 1.1 10^3/uL (0.0-1.0); MONOCYTES % (AUTO) 11 % (0-12); NEUTROPHILS # (AUTO) 6.9 10^3/uL (1.8-7.8); NEUTROPHILS % (AUTO) 67 % (42-75); PLATELET COUNT 218 10^3/uL (130-400); WHITE BLOOD COUNT 10.3 10^3/uL (4.3-11.0)
[2021-09-04] MEDS ORDERED: fentaNYL 2 mcg/ml BUPIVA 0.125 100 ML ONE (03:21)
--- NOTE | 2021-09-04 03:44 | History & Physical ---
History and Physical Date Seen by Provider: September 04, 2021 Time Seen by Provider: 03:43 This patient is a 35-year-old multigravid patient currently at 37 weeks Gestation. She presented in active labor. Initially her cervix was less than 2 cm dilated and an hour or 2 she was 4 to 5 cm. She denies rupture membranes or bleeding. Her has been uncomplicated. Her GBS culture was negative. Allergies are to azithromycin/clavulanic acid/latex Medications are vitamins Medical social and surgical history is all per the antepartum record HEENT exam is normal Neck is supple no lymphadenopathy no thyromegaly Abdomen is gravid soft nontender nondistended Extremities show no clubbing or cyanosis. There is no Homans' sign. Pelvic exam is pending Assessment and plan 37-week gestation in active labor. has been uncomplicated and we expect a vaginal delivery 37-week in active labor Allergies and Home Medications Allergies Coded Allergies: azithromycin (Verified Allergy, Unknown, 02/19/20) clavulanic acid (Verified Allergy, Unknown, 02/19/20) latex (Unverified Allergy, Unknown, 02/19/20) Patient Home Medication List Home Medication List Reviewed: Yes Cephalexin (Cephalexin) 500 Mg Capsule, (Reported) Entered as Reported by: IRLANDA SOL on 11/08/172058 Cephalexin (Keflex) 500 Mg Capsule, 500 MG PO TID Prescribed by: BAILEE SHAIKH on 01/08/20 0038 Citalopram Hydrobromide (Celexa) 20 Mg Tablet, 20 MG PO DAILY, (Reported) Entered as Reported by: YARELY MAC on 04/24/17 0600 Ibuprofen (Ibuprofen) 800 Mg Tablet, 800 MG PO Q6H PRN for PAIN Prescribed by: AUDRA LONG on 02/19/20 0915 Levothyroxine Sodium (Synthroid) 150 Mcg Tablet, (Reported) Entered as Reported by: IRLANDA SOL on 11/08/172058 Multivitamin with Minerals (Hair, Skin & Nails) 1 Each Tablet, 1 EACH PO DAILY, (Reported) Entered as Reported by: IRLANDA SOL on 11/08/172100 Vits W-Ca,Fe,Fa(<1MG) () 1 Each Tablet, 1 EACH PO DAILY, (Reported) Entered as Reported by: ANURADHA JAY on 12/21/10 0824 [Vitamin D] , (Reported) Entered as Reported by: IRLANDA SOL on 11/08/172058 AUDRA AGUDELO MD September 04, 2021 03:44
[2021-09-04] MEDS ORDERED: OXYTOCIN PRE-MIX DRIP 500 ML IV SCH ×2 (03:45→08:45)
[2021-09-04] MEDS ORDERED: DOCU-143 PO (03:48)
[2021-09-04] MEDS ORDERED: IBUP-1780 PO (03:48)
[2021-09-04] MEDS ORDERED: OXYC1TAB87 PO (03:48)
--- NOTE | 2021-09-04 03:51 | Discharge Inst-Surgical ---
Discharge Inst-Surgical Depart Medication/Instructions New, Converted or Re-Newed RX: Transmitted to Pharmacy Consults/Follow Up Patient Instructions: As directed Orders & Referrals Follow Up Appt: Call to make follow up appt. for patient in 4 weeks. Activity Per routine post vaginal delivery instructions. Diet as tolerated Patient may shower or tub bathe as desired. Activity Activity as Tolerated: No Diet Discharge Diet: No Restrictions AUDRA AGUDELO MD September 04, 2021 03:51
[2021-09-04] MEDS ORDERED: LACTATED RINGERS 1,000 ML IV ONE ×3 (04:00→04:30)
[2021-09-04] MEDS ORDERED: NALOXONE 0.4 MG/ML 1 ML (NARCAN) VIAL IV PRN (04:30)
[2021-09-04] MEDS ORDERED: fentaNYL INJ 100 MCG/2 ML AMP INJ ONE (04:30)
[2021-09-04] MEDS ORDERED: ONDANSETRON 4 MG/2 ML (SDV) Z0FRAN IV PRN (04:30)
[2021-09-04] MEDS ORDERED: EPIDURAL (fentaNYL 2 MCG/ML BUPIVA 0.125%)100 ML BAG EPI PRN (04:30)
[2021-09-04] MEDS ORDERED: BUPIVACAINE 0.25% 10 ML (SENSORCAINE) VIAL ONE (04:41)
[2021-09-04] MEDS ORDERED: fentaNYL INJ 100 MCG/2 ML AMP ONE (04:41)
[2021-09-04] MEDS ORDERED: CITRIC ACID/SOB CIT (BICITRA) 30 ML UDC ONE (04:43)
[2021-09-04] MEDS ORDERED: CITRIC ACID/SOB CIT (BICITRA) 30 ML UDC PO ONE (04:45)
[2021-09-04] MEDS ORDERED: LIDOCAINE/EPI 2% 1:200,00 (XYLOCAINE) 10 ML VIAL ONE (07:53)
--- NOTE | 2021-09-04 08:09 | OB Labor & Delivery Record ---
Labor & Delivery This patient delivered by term spontaneous vaginal delivery of viable male with Apgars of 8 and 9 at 1 and 5 minutes respectively weight of 8 pounds 3 ounces time of 07 46. The delivered over a first-degree perineal laceration under epidural analgesia. The was bulb suctioned on delivery of the head the cord when pulseless was doubly clamped about father cut the cord, baby was passed to mom's abdomen. Cord bloods were obtained the placenta delivered fairly promptly spontaneously Guevara it was normal with a three-vessel cord. The cervix vagina rectum perineum were examined and found intact except for a first-degree perineal laceration in the posterior fourchette that was repaired under local analgesia with a single suture of 3-0 Vicryl Rapide. 10 cc of 1% lidocaine with epinephrine were used in the perineal body for the repair. Sponge needle counts were correct on completion of delivery and repair. Blood loss was around 150 cc. Patient tolerated delivery and repair well and remained in the LDR the baby remained with mom. AUDRA AGUDELO MD September 04, 2021 08:09
[2021-09-04] MEDS ORDERED: oxyCODONE/APAP 5/325MG (PERCOCET 5) TABLET PO PRN (08:45)
[2021-09-04] MEDS ORDERED: TETANUS,DIPTH,PERTUSS P/F (BOOSTRIX) 0.5 ML VIAL IM ONE (08:45)
[2021-09-04] MEDS ORDERED: BENZOCAINE/MENTHOL (DERMOPLAST) 56 ML CAN TP PRN (08:45)
[2021-09-04] MEDS ORDERED: ONDANSETRON 4 MG/2 ML (SDV) Z0FRAN IVP PRN (08:45)
[2021-09-04] MEDS: KETOROLAC 30 MG/ML VIAL IVP SCH ×3 (10:12→22:28)
[2021-09-04] MEDS ORDERED: WITCH HAZEL(TUCKS) 40 EA JAR ONE (10:19)
[2021-09-04] MEDS ORDERED: LIDOCAINE/EPI 1%-1:200,000 (XYLOCAINE) 30 ML VIAL INJ ONE (11:30)
[2021-09-04] MEDS ORDERED: IBUPROFEN 800 MG (MOTRIN) TAB PO SCH (12:00)
[2021-09-04] MEDS ORDERED: DIBUCAINE 1% OINTMENT 30 GM TUBE ONE (16:09)
[2021-09-04] MEDS ORDERED: DIBUCAINE 1% OINTMENT 30 GM TUBE TOP PRN (16:15)
[2021-09-04] MEDS: DOCUSATE SODIUM 100 MG (COLACE) CAP PO SCH (22:28)
[2021-09-04] MEDS: CATHETER FLUSH 10 ML SYR IV SCH (22:48)
[2021-09-05 00:25] VITALS: BP 114/67
[2021-09-05 04:30] VITALS: BP 113/71
[2021-09-05] MEDS: KETOROLAC 30 MG/ML VIAL IVP SCH (04:39)
[2021-09-05] MEDS: CATHETER FLUSH 10 ML SYR IV SCH (04:48)
--- NOTE | 2021-09-05 09:51 | Progress Note ---
Standard Progress Note Progress Notes/Assess & Plan Date Seen by a Provider: September 05, 2021 Time Seen by a Provider: 09:50 Progress/Assessment & Plan This patient is without complaint. She is ambulating, voiding, tolerating oral intake well and has good pain control. Patient is requesting discharge home. Vital Signs Date Time Temp Pulse Resp B/P (MAP) Pulse Ox O2 Delivery O2 Flow Rate FiO2 09/05/21 04:30 36.3 69 18 113/71 (85) 98 Room Air 09/05/21 00:25 36.6 60 18 114/67 (83) 97 Room Air 09/04/21 19:46 36.6 63 18 124/76 (92) 98 Room Air 09/04/21 16:06 36.5 66 18 108/52 (70) 97 Room Air 09/04/21 13:03 36.5 67 18 111/62 (78) 97 Room Air 09/04/21 10:21 36.9 71 18 112/61 (78) Room Air I & O 09/05/21 07:00 Intake Total 1500 ml Balance 1500 ml Vital signs are stable. Patient is afebrile. Fundus is firm below the umbilicus and nontender. Extremities show no clubbing or cyanosis. There is no Homans' sign. Assessment and plan day #1 doing well. Plan is for discharge home as needed patient request AUDRA AGUDELO MD September 05, 2021 09:51
[2021-09-05] MEDS: DOCUSATE SODIUM 100 MG (COLACE) CAP PO SCH ×3 (10:35→11:02)
[2021-09-05 10:37] VITALS: BP 131/64
[2021-09-05] MEDS ORDERED: IBUPROFEN 800 MG (MOTRIN) TAB PO SCH (11:00)
--- NOTE | 2021-09-06 09:37 | Anesthesia-Regional Post-Op ---
Regional Significant Intra-Op Events Notes late entry from 09/04/21 at 1700 Patient Condition Mental Status: Alert, Oriented x3 Circulation: Same as Pre-Op Headache: Absent Sensation: Full Recovery Motor Block: Absent Post Op Complications Complications None Follow Up Care/Instructions Patient Instructions None needed. Anesthesia/Patient Condition Patient is doing well, no complaints, stable vital signs, no apparent adverse anesthesia problems. No complications reported per nursing. JORGE A CONNER CRNA September 06, 2021 09:37
== END 2021-09-05 12:15 | disposition home or self-care (01) | DRG 807 ==
LOC: WSo 01:00 → LDRP 01:05 → WSo 02:29 → LDRP 10:35
PROVIDERS: ADMIT Obstetrics & Gynecology; ATTEND Obstetrics & Gynecology
PROC: 10E0XZZ Delivery of Products of Conception, External Approach (ICD-10-PCS; principal; 2021-09-04)
PROC: 0HQ9XZZ Repair Perineum Skin, External Approach (ICD-10-PCS; 2021-09-04)
DX: O70.0 First degree perineal laceration during delivery (principal); Z37.0 Single live birth; Z3A.37 37 weeks gestation of pregnancy; Z88.8 Allergy status to other drugs, medicaments and biological substances; Z88.1 Allergy status to other antibiotic agents; Z91.040 Latex allergy status
CPT/HCPCS: 36415; 81000; 82947; 85025; 86780; 86850; 86900; 86901; 99212

== ENCOUNTER → 2022-04-01 | Outpatient (CLI) | payer OTHER, MEDICAID ==
[~2022-04-01] MED LIST changes: +OXYC1TAB87 PO
--- NOTE | 2022-04-01 17:26 | Diagnostic Imaging Report ---
PROCEDURE: US Thyroid. TECHNIQUE: Multiple real-time grayscale images were obtained of the thyroid in various projections. INDICATION: Goiter. History of Chante's. Left-sided thyroid nodule. COMPARISON: 03/27/2020. FINDINGS: Both thyroid lobes demonstrate a heterogeneous background echogenicity with increased vascularity throughout. There are no focal lesions seen. The right lobe measures 5.7 cm in length, 2.7 cm AP, and 2.2 cm transverse. The left lobe measures 5.1 cm in length, 2.0 cm AP, and 1.8 cm transverse. The isthmus measures 0.5 cm. IMPRESSION: Generalized heterogeneous appearance of the thyroid with increased vascularity throughout. Findings likely represent the patient's history of Chante's. No focal nodule is seen. Recommend continued follow-up with TSH levels and thyroid ultrasound, as indicated. Dictated by: Dictated on workstation # [id number]
== END ==
LOC: RAD 13:45
PROVIDERS: ATTEND Otolaryngology Otolaryngology/Facial Plastic Surgery
DX: E04.1 Nontoxic single thyroid nodule (principal); Z86.39 Personal history of other endocrine, nutritional and metabolic disease
CPT/HCPCS: 76536